=== PATIENT | female | born 1945 | race Caucasian/White ===

== ENCOUNTER 2017-04-01 20:01 | Inpatient (IN) | payer OTHER ==
[~2017-04-01] VITALS: Ht 157.5 cm; Wt 69.9 kg
[~2017-04-01 20:01] MED LIST: AMLO5TAB4 PO; ATEN-51 PO; CRES10 PO; ENAL20TA PO; HYD25 PO; MTF1000T PO
[2017-04-01] MEDS ORDERED: SOD CHLORIDE 0.9% 1,000 ML IV STA (22:04)
[2017-04-01] MEDS ORDERED: ONDANSETRON 4 MG INJ IV STA (22:04)
[2017-04-01] MEDS ORDERED: morphine 2 MG INJ IV STA (22:04)
[2017-04-01 22:21] LABS: ADD SCAN DIFF NO
[2017-04-01 22:31] LABS: BASOPHILS % 0.1 % (0.0-2.0); EOSINOPHILS # 0.1 10^3/ul (0.0-0.5); EOSINOPHILS % 0.3 % (0.0-7.0); HEMATOCRIT 35.2 % (37.0-47.0); HEMOGLOBIN 11.7 g/dl (12.0-16.0); LYMPHOCYTES # 1.2 10^3/ul (0.8-2.9); LYMPHOCYTES % 7.4 % (15.0-51.0); MEAN CORPUSCULAR HEMOGLOBIN 29.4 pg (29.0-33.0); MEAN CORPUSCULAR HGB CONC 33.2 g/dl (32.0-37.0); MEAN CORPUSCULAR VOLUME 88.4 fl (82.0-101.0); MEAN PLATELET VOLUME 10.9 fl (7.4-10.4); MONOCYTE # 0.6 10^3/ul (0.3-0.9); MONOCYTES % 3.9 % (0.0-11.0); NEUTROPHIL # 14.1 10^3/ul (1.6-7.5); NEUTROPHILS % 87.2 % (39.0-77.0); PLATELET COUNT 178 10^3/UL (140-415); RED BLOOD COUNT 3.98 10^6/ul (4.20-5.40); RED CELL DISTRIBUTION WIDTH 12.2 % (11.5-14.5); WHITE BLOOD COUNT 16.1 10^3/ul (4.8-10.8)
[2017-04-01 22:53] LABS: ALBUMIN 4.2 g/dl (3.3-4.9); ALBUMIN/GLOBULIN RATIO 1.4; BILIRUBIN,INDIRECT 0.9 mg/dl (0-1.1); BILIRUBIN,TOTAL 0.9 mg/dl (0.2-1.3); CALCIUM 8.6 mg/dl (8.4-10.2); CREATININE 0.88 mg/dl (0.44-1.00); POTASSIUM 3.7 mmol/L (3.5-5.1); TOTAL PROTEIN 7.2 g/dl (6.1-8.1)
--- NOTE | 2017-04-01 23:06 | RADRPT ---
PROCEDURE: US Abdomen. CLINICAL INDICATION: abdominal pain TECHNIQUE: Multiple real-time images were acquired of the patient's right upper quadrant abdomen a nd retroperitoneum utilizing a high resolution transducer. COMPARISON: None FINDINGS: The liver demonstrates normal echogenicity. The liver is normal in size and no focal solid lesions are seen. The liver measures 15.8 cm in length. The portal vein is patent with normal direction of f low. No intrahepatic biliary dilatation is seen. Multiple calcified gallstones are identified within the gallbladder. There is also sludge within the gallbladder. There is no pericholecystic fluid . There is borderline gallbladder wall thickening, measuring 3 mm. The common bile duct measures 8 mm in maximal dimension. The visualized portions of the pancreas are unremarkable. The tail of the pancreas is not seen. No free fluid is identified. The right kidney is normal in size, and demonstrate normal echogenicity and cortical thickness. The right kidney measures 8.4 cm in long dimension. There is no evidence of hydronephrosis. There are no kidney stones. RPTAT: AA IMPRESSION: Multiple calcified stones and sludge within the gallbladder with borderline gallbladder wall thicken ing. CBD is borderline dilated. .Shane Cagle MD, Date Time Electronically viewed and signed by .Shane Cagle MD, MD on 04/01/2017 23:05 .S/
[2017-04-01 23:08] LABS: ADD UMIC YES; UR BILIRUBIN (Dip) NEGATIVE (NEGATIVE); UR BLOOD (Dip) 2+ (NEGATIVE); UR CLARITY CLEAR (CLEAR); UR COLOR LT. YELLOW (YELLOW); UR KETONES (Dip) NEGATIVE (NEGATIVE); UR LEUKOCYTE ESTERASE (Dip) NEGATIVE (NEGATIVE); UR NITRITE (Dip) NEGATIVE (NEGATIVE); UR TOTAL PROTEIN (Dip) TRACE (NEGATIVE); UR UROBILINOGEN (Dip) 1.0 E.U./dL (0.1-1.0)
[2017-04-01 23:26] LABS: UR BACTERIA RARE; UR SQUAMOUS EPITHELIAL CELL RARE
[2017-04-01] MEDS ORDERED: morphine 4 MG/ML VIAL IV STA (23:26)
--- NOTE | 2017-04-01 23:35 | ERA ---
ER Documentation Chief Complaint Date/Time DATE: 04/01/17 TIME: 23:33 Chief Complaint Nausea and AP x3 days, Dizziness HPI 72-year-old female comes in along with her son for vomiting and upper abdominal pain for the last 3 days. Dental pain is described as both a sharpness and a pressure-like pain. She also feels lightheaded. Sometimes the pain is very severe and sometimes it goes back down. The day before yesterday she was at another emergency room where they did a CAT scan and said that she may be passing gallstones. She did not get any more information. She is having more pain now than she did then. She is having chills at home but is not sure if she has had fevers. ROS All systems reviewed and are negative except as per history of present illness. Medications Home Meds Active Scripts Amlodipine Besylate* (Norvasc*) 5 Mg Tablet, 5 MG PO DAILY, #30 TAB Prov:SAL VENTURA MD 10/29/15 Reported Medications Metformin* (Glucophage*) 1,000 Mg Tablet, 1000 MG PO BID, #60 TAB 10/29/15 Enalapril Maleate* (Enalapril Maleate*) 20 Mg Tablet, 20 MG PO BID, TAB 10/29/15 Hydrochlorothiazide* (Hydrochlorothiazide*) 25 Mg Tab, 25 MG PO DAILY, #30 TAB 10/29/15 Atenolol* (Atenolol*) 25 Mg Tablet, 25 MG PO BID, TAB 10/29/15 Rosuvastatin Calcium* (Crestor*) 10 Mg Tablet, 10 MG PO QHS, #30 TAB 10/29/15 Allergies Allergies: Coded Allergies: No Known Drug Allergies (Verified Allergy, Unknown, 10/29/15) PMhx/Soc History of Surgery: Yes (hysterectomy 1987) Anesthesia Reaction: No Hx 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 Disorder: No Hx Respiratory Disorders: No Hx Psychiatric Problems: No Hx Miscellaneous Medical Probl: Yes (DM type 2) Hx Alcohol Use: No Hx Substance Use: No Hx Tobacco Use: No Smoking Status: Never smoker Physical Exam Vitals Vital Signs Date Time Temp Pulse Resp B/P Pulse Ox O2 Delivery O2 Flow Rate FiO2 04/02/17 00:00 98.6 57 20 132/51 96 Room Air 04/01/17 22:18 98.6 60 20 130/73 94 Room Air 04/01/17 20:28 98.6 63 20 128/62 96 Physical Exam Const: [] Mild distress, appears to be in some pain Head: Atraumatic Eyes: Normal Conjunctiva ENT: Normal External Ears, Nose and Mouth. Neck: Full range of motion..~ No meningismus. Resp: Clear to auscultation bilaterally Cardio: Regular rate and rhythm, no murmurs Abd: Soft, mild to moderate upper abdominal tenderness and right upper quadrant tenderness with mild voluntary guarding, positive Benitez sign, non distended. Normal bowel sounds Skin: No petechiae or rashes Back: No midline or flank tenderness Ext: No cyanosis, or edema Neur: Awake and alert and oriented 3, no focal deficits Psych: Normal Mood and Affect Result Diagram: 04/01/17220404/01/172204 Results 24 hrs Laboratory Tests Test 04/01/17 22:05 04/01/17 22:40 White Blood Count 16.110^3/ul Red Blood Count 3.9810^6/ul Hemoglobin 11.7g/dl Hematocrit 35.2% Mean Corpuscular Volume 88.4fl Mean Corpuscular Hemoglobin 29.4pg Mean Corpuscular Hemoglobin Concent 33.2g/dl Red Cell Distribution Width 12.2% Platelet Count 44702^3/UL Mean Platelet Volume 10.9fl Neutrophils % 87.2% Lymphocytes % 7.4% Monocytes % 3.9% Eosinophils % 0.3% Basophils % 0.1% Nucleated Red Blood Cells % 0.0/100WBC Neutrophils # 14.110^3/ul Lymphocytes # 1.210^3/ul Monocytes # 0.610^3/ul Eosinophils # 0.110^3/ul Basophils # 0.010^3/ul Nucleated Red Blood Cells # 0.010^3/ul Sodium Level 131mmol/L Potassium Level 3.7mmol/L Chloride Level 91mmol/L Carbon Dioxide Level 33mmol/L Anion Gap 11 Blood Urea Nitrogen 17mg/dl Creatinine 0.88mg/dl Glucose Level 243mg/dl Calcium Level 8.6mg/dl Total Bilirubin 0.9mg/dl Direct Bilirubin 0.00mg/dl Indirect Bilirubin 0.9mg/dl Aspartate Amino Transf (AST/SGOT) 123IU/L Alanine Aminotransferase (ALT/SGPT) 190IU/L Alkaline Phosphatase 163IU/L Total Protein 7.2g/dl Albumin 4.2g/dl Globulin 3.00g/dl Albumin/Globulin Ratio 1.40 Lipase 25U/L Urine Color LT. YELLOW Urine Clarity CLEAR Urine pH 6.0 Urine Specific [place] 1.015 Urine Ketones NEGATIVE Urine Nitrite NEGATIVE Urine Bilirubin NEGATIVE Urine Urobilinogen 1.0 E.U./dL Urine Leukocyte Esterase NEGATIVE Urine Microscopic RBC 2-5/HPF Urine Microscopic WBC NONE SEEN/HPF Urine Squamous Epithelial Cells RARE Urine Bacteria RARE Urine Hemoglobin 2+ Urine Glucose 0.25%% Urine Total Protein TRACE Current Medications Medications (Trade) Dose Ordered Sig/Carrie Route PRN Reason Start Time Stop Time Status Last Admin Dose Admin Sodium Chloride (NS) 1,000 ml @ 1,000 mls/hr Q1H STAT IV 04/01/17 22:04 04/01/17 23:03 DC 04/01/17 22:49 Morphine Sulfate (morphine) 2 mg ONCE STAT IV 04/01/17 22:04 04/01/17 22:05 DC Ondansetron HCl (Zofran Inj) 4 mg ONCE STAT IV 04/01/17 22:04 04/01/17 22:05 DC 04/01/17 22:46 Morphine Sulfate 4 mg 4 mg ONCE STAT IV 04/01/17 23:26 04/01/17 23:27 DC Ceftriaxone Sodium 50 ml @ 100 mls/hr ONCE ONCE IVPB 04/02/17 02:30 04/02/17 02:59 04/02/17 02:14 Metronidazole 100 ml @ 100 mls/hr ONCE ONCE IVPB 04/02/17 02:30 04/02/17 03:29 Sodium Chloride (NS) 1,000 ml @ 1,000 mls/hr Q1H ONCE IV 04/02/17 02:30 04/02/17 03:29 04/02/17 02:14 Ondansetron HCl (Zofran Inj) 4 mg BRIDGE ORDER PRN IV NAUSEA AND/OR VOMITING 04/02/17 02:30 04/03/17 02:29 Acetaminophen (Tylenol Tab) 650 mg ER BRIDGE PRN PO MILD PAIN/FEVER 04/02/17 02:30 04/03/17 02:29 Procedures/MDM Acute cholecystitis and diabetic elderly female. Elevated white count and evidence of gallbladder inflammation with liver enzyme elevation. Patient was treated with 2 L of IV fluid. Also gave Rocephin and Flagyl. No signs of sepsis. Patient declined additional morphine, was given Zofran which helped with her nausea. Spoke with , surgeon on-call, who will manage the case surgically. Also spoke with Dr. busch who will be admitting the patient to the medical surgical floor. Right upper quadrant ultrasound interpretation: Multiple gallstones with mild wall thickening and mild common bile ductal dilation. Departure Diagnosis: Primary Impression: Acute cholecystitis Additional Impressions: Hyperglycemia due to type 2 diabetes mellitus Acute abdominal pain Vomiting Generalized weakness Condition: Serious EDGARCHELSITOMI DO Apr 01, 2017 23:35
[2017-04-02] MEDS ORDERED: CEFTRIAXONE 1 GM/50 ML (PMX) 50 ML IVPB ONE (02:30)
[2017-04-02] MEDS ORDERED: SOD CHLORIDE 0.9% 1,000 ML IV ONE (02:30)
[2017-04-02] MEDS ORDERED: metroNIDAZOLE 500 MG/NS (PMX) 100 ML IVPB ONE (02:30)
[2017-04-02] MEDS ORDERED: ONDANSETRON 4 MG INJ IV PRN (02:30)
[2017-04-02] MEDS ORDERED: ACETAMINOPHEN 325 MG TAB PO PRN ×2 (02:30→03:30)
[2017-04-02 02:58] VITALS: TEMP 98.6
[2017-04-02] MEDS ORDERED: hydrALAzine 20 MG INJ IV PRN (03:00)
[2017-04-02] MEDS: SOD CHLORIDE 0.9% 1,000 ML IV SCH ×3 (03:03→23:03)
[2017-04-02] MEDS ORDERED: NACL 0.9% 3 ML SYG IV SCH (03:30)
[2017-04-02] MEDS ORDERED: ACETAMINOPHEN 650 MG SUPP PR PRN (03:30)
[2017-04-02] MEDS ORDERED: DOCUSATE SODIUM 100 MG CAP PO PRN (03:30)
[2017-04-02] MEDS ORDERED: morphine 2 MG INJ IV PRN (03:30)
[2017-04-02] MEDS ORDERED: MAGNESIUM HYDROXIDE 30ML CUP PO PRN (03:30)
[2017-04-02] MEDS ORDERED: BISACODYL 10 MG SUPP PR PRN (03:30)
[2017-04-02 03:39] VITALS: BP 169/68; RESP 20
[2017-04-02 04:00] VITALS: Ht 157.5 cm; Wt 69.9 kg
[2017-04-02 06:24] LABS: INR 1.12; PROTIME 14.4 Sec (12.2-14.2); PT RATIO 1.1
[2017-04-02 06:25] LABS: PARTIAL THROMBOPLASTIN TIME 35.7 Sec (25.0-35.0)
[2017-04-02] MEDS: LEVOFLOXACIN 500MG/D5W (PMX) 100 ML IVPB SCH (06:45)
[2017-04-02 06:52] VITALS: BP 114/65; PULSE 84
--- NOTE | 2017-04-02 07:05 | RADRPT ---
PROCEDURE: XR Chest. CLINICAL INDICATION: Preop TECHNIQUE: Single frontal chest x-ray. COMPARISON: None. FINDINGS: The lungs are clear. No focal opacification is seen. The cardiomediastinal silhouette is unremarka ble. The osseous structures are unremarkable. IMPRESSION: 1. There is no acute cardiopulmonary process. RPTAT: PP .Crispin Tadeo MD, MD Date Time Electronically viewed and signed by .Crispin Tadeo MD, MD on 04/02/2017 07:04 .B/
[2017-04-02] MEDS ORDERED: DEXTROSE 50% 50 ML SYRINGE IV PRN ×2 (07:30)
[2017-04-02] MEDS ORDERED: GLUCOSE GEL 15 GRAM TUBE PO PRN ×2 (07:30)
[2017-04-02] MEDS ORDERED: GLUCAGON 1 MG INJ IM PRN (07:30)
[2017-04-02] MEDS ORDERED: GLUCOSE GEL 15 GRAM TUBE BUCCAL PRN (07:30)
[2017-04-02 08:31] VITALS: BP 132/60; RESP 18
[2017-04-02] MEDS: FAMOTIDINE 20 MG INJ IV SCH ×2 (08:32→20:15)
[2017-04-02] MEDS: metroNIDAZOLE 500 MG/NS (PMX) 100 ML IVPB SCH ×2 (08:32→14:27)
[2017-04-02] MEDS: ATENOLOL 25 MG TAB PO SCH ×2 (08:33→20:16)
[2017-04-02] MEDS: AMLODIPINE 5 MG TAB PO SCH (08:33)
[2017-04-02] MEDS: ENALAPRIL 20 MG TAB PO SCH ×2 (08:34→20:16)
[2017-04-02] MEDS: INSULIN ASPART [NOVOLOG] 3 ML PEN SC SCH ×4 (08:47→20:25)
--- NOTE | 2017-04-02 12:36 | CONS ---
Date/Time of Note Date/Time of Note DATE: 04/02/17 TIME: 12:31 Assessment/Plan Assessment/Plan Chief Complaint/Hosp Course 72-year-old female with clinical signs and symptoms of acute cholecystitis. This has been confirmed via an ultrasound study. * Continue n.p.o., IV fluid hydration, broad-spectrum intravenous antibiotics, pain control * Tight blood sugar control * LFTs slightly elevated. Common bile duct 8 mm on ultrasound. MRCP has been ordered to evaluate for choledocholithiasis. * Recommend laparoscopic cholecystectomy; possible open to prevent further sequelae of gallstone disease which include, but are not limited to: Gangrenous cholecystitis, ascending cholangitis, choledocholithiasis, gallstone pancreatitis, etc. * The above was discussed with the patient and her family at the bedside along with all risks and benefits of surgical procedure. They fully understand and are agreeable to the treatment plan as outlined. She will be scheduled for possible laparoscopic cholecystectomy in a.m. pending medical clearance. Problems: Consultation Date/Type/Reason Admit Date/Time Apr 02, 2017 at 02:31 Date of Consultation: Apr 02, 2017 Type of Consultation: GENERAL SURGERY Reason for Consultation Acute cholecystitis Hx of Present Illness Patient is an obese 72-year-old female with a history of diabetes and hypertension who presented to the emergency room with a 3 day history of right upper quadrant abdominal pain. This has been associated with nausea and vomiting. She also reports constipation. There has been no fever/chills. Initially, the patient was seen at the [place] [facility] where CT scan was done. She was told she had gallstones, but was discharged home. Her pain persisted and she presented to the [facility] emergency room. On arrival here she was found to have a leukocytosis of 16,000. Total bilirubin level is normal, however transaminases and alk phos are elevated. Ultrasound which was done showed findings consistent with acute cholecystitis. A 14 point review of systems was conducted and was negative except for that which is mentioned in HPI Past Medical History Medical History: diabetes, hypertension Past Surgical History Past Surgical Hx: other (Cataract surgery) Family History Significant Family History: no pertinent family hx Social History Smoking Status: Never smoker Exam/Review of Systems Vital Signs Vitals Vital Signs Date Time Temp Pulse Resp B/P Pulse Ox O2 Delivery O2 Flow Rate FiO2 04/02/17 08:31 98.1 67 18 132/60 96 04/02/17 02:58 Room Air Intake and Output 04/01/17 04/01/17 04/02/17 15:00 23:00 07:00 Intake Total 100 ml Balance 100 ml Exam GENERAL: Awake, alert, oriented x 3. No acute distress. SKIN: No jaundice. HEENT: PERRLA, EOMI, No Scleral Icterus NECK: Supple without JVD CARDIOVASCULAR: S1S2, regular rate and rhythm. No murmurs appreciated. RESPIRATORY: Clear to auscultation bilaterally. ABDOMEN: Soft, bowel sounds present, there is right upper quadrant tenderness to palpation. There is no evidence of diffuse peritonitis. EXTREMITIES: Free range of motion x 4. No cyanosis, edema, or clubbing. NEUROLOGIC: Cranial nerves II-XII are intact. Sensation is intact grossly. Results Result Diagram: 04/01/17220404/01/172204 Results 24 hrs Laboratory Tests Test 04/01/17 22:05 04/01/17 22:40 04/02/17 04:04 04/02/17 05:40 White Blood Count 16.1 #H Red Blood Count 3.98 L Hemoglobin 11.7 L Hematocrit 35.2 L Mean Corpuscular Volume 88.4 Mean Corpuscular Hemoglobin 29.4 Mean Corpuscular Hemoglobin Concent 33.2 Red Cell Distribution Width 12.2 Platelet Count 178 Mean Platelet Volume 10.9 H Neutrophils % 87.2 H Lymphocytes % 7.4 L Monocytes % 3.9 Eosinophils % 0.3 Basophils % 0.1 Nucleated Red Blood Cells % 0.0 Neutrophils # 14.1 H Lymphocytes # 1.2 Monocytes # 0.6 Eosinophils # 0.1 Basophils # 0.0 Nucleated Red Blood Cells # 0.0 Sodium Level 131 L Potassium Level 3.7 Chloride Level 91 L Carbon Dioxide Level 33 H Anion Gap 11 Blood Urea Nitrogen 17 Creatinine 0.88 Glucose Level 243 H Calcium Level 8.6 Total Bilirubin 0.9 Direct Bilirubin 0.00 Indirect Bilirubin 0.9 Aspartate Amino Transf (AST/SGOT) 123 H Alanine Aminotransferase (ALT/SGPT) 190 H Alkaline Phosphatase 163 H Total Protein 7.2 Albumin 4.2 Globulin 3.00 Albumin/Globulin Ratio 1.40 Lipase 25 Urine Color LT. YELLOW Urine Clarity CLEAR Urine pH 6.0 Urine Specific [place] 1.015 Urine Ketones NEGATIVE Urine Nitrite NEGATIVE Urine Bilirubin NEGATIVE Urine Urobilinogen 1.0 E.U./dL Urine Leukocyte Esterase NEGATIVE Urine Microscopic RBC 2-5 Urine Microscopic WBC NONE SEEN Urine Squamous Epithelial Cells RARE Urine Bacteria RARE Urine Hemoglobin 2+ H Urine Glucose 0.25% H Urine Total Protein TRACE Bedside Glucose 167 Prothrombin Time 14.4 H Prothrombin Time Ratio 1.1 INR International Normalized Ratio 1.12 Activated Partial Thromboplast Time 35.7 H Test 04/02/17 08:44 Bedside Glucose 155 Medications Medications Current Medications Amlodipine Besylate (Norvasc) 5 mg DAILY PO Last administered on 04/02/17 08: 33; Admin Dose 5 MG; Start 04/02/17 at 09:00 Atenolol (Tenormin) 25 mg BID PO Last administered on 04/02/17 08:33; Admin Dose 25 MG; Start 04/02/17 at 09:00 Enalapril Maleate (Vasotec) 20 mg BID PO Last administered on 04/02/17 08:34; Admin Dose 20 MG; Start 04/02/17 at 09:00 Hydralazine HCl 10 mg 10 mg Q8H PRN IV ELEVATED BLOOD PRESSURE; Start 04/02/17 at 03:00 Sodium Chloride (NS) 1,000 ml @ 100 mls/hr Q10H IV ; Start 04/02/17 at 03:03 Ondansetron HCl (Zofran Inj) 4 mg Q6H PRN IV NAUSEA AND/OR VOMITING; Start 09/08 at 03:30 Acetaminophen (Tylenol Tab) 650 mg Q6H PRN PO PAIN LEVEL 1-3 OR FEVER; Start at 03:30 Acetaminophen (Tylenol Supp) 650 mg Q6H PRN DC PAIN LEVEL 1-3 OR FEVER; Start 04/02/17 at 03:30 Morphine Sulfate (morphine) 2 mg Q4H PRN IV SEVERE PAIN LEVEL 7-10; Start 04/02 at 03:30 Docusate Sodium (Colace) 100 mg Q12H PRN PO CONSTIPATION; Start 04/02/17 at 03: 30 Magnesium Hydroxide (Milk Of Mag) 30 ml DAILY PRN PO CONSTIPATION; Start at 03:30 Bisacodyl (Dulcolax Supp) 10 mg DAILY PRN DC CONSTIPATION; Start 04/02/17 at 03 :30 Famotidine 20 mg 20 mg Q12 IV Last administered on 04/02/17 08:32; Admin Dose 20 MG; Start 04/02/17 at 09:00 Metronidazole 100 ml @ 100 mls/hr Q8 IVPB Last administered on 04/02/17 08:32 ; Admin Dose 100 MLS/HR; Start 04/02/17 at 08:00 Levofloxacin/ Dextrose (Levaquin 500mg/ D5W 100 ml (Pmx)) 100 ml @ 100 mls/hr Q24H IVPB Last administered on 04/02/17 06:45; Admin Dose 100 MLS/HR; Start at 03:30 Insulin Aspart (Novolog Insulin Pen) NOVOLOG *MILD* ALGORI... Q4 SC ; Start 09/08 at 09:00 Miscellaneous Information 1 ea NOTE XX ; Start 04/02/17 at 07:30 Glucose (Glutose) 15 gm Q15M PRN PO DECREASED GLUCOSE; Start 04/02/17 at 07:30 Glucose (Glutose) 22.5 gm Q15M PRN PO DECREASED GLUCOSE; Start 04/02/17 at 07: 30 Dextrose (D50w Syringe) 25 ml Q15M PRN IV DECREASED GLUCOSE; Start 04/02/17 at 07:30 Dextrose (D50w Syringe) 50 ml Q15M PRN IV DECREASED GLUCOSE; Start 04/02/17 at 07:30 Glucagon (Glucagen) 1 mg Q15M PRN IM DECREASED GLUCOSE; Start 04/02/17 at 07:30 Glucose (Glutose) 15 gm Q15M PRN BUCCAL DECREASED GLUCOSE; Start 04/02/17 at 07 :30 Procedures Procedures PROCEDURE: US Abdomen. CLINICAL INDICATION: abdominal pain TECHNIQUE: Multiple real-time images were acquired of the patient's right upper quadrant abdomen and retroperitoneum utilizing a high resolution transducer. COMPARISON: None FINDINGS: The liver demonstrates normal echogenicity. The liver is normal in size and no focal solid lesions are seen. The liver measures 15.8 cm in length. The portal vein is patent with normal direction of flow. No intrahepatic biliary dilatation is seen. Multiple calcified gallstones are identified within the gallbladder. There is also sludge within the gallbladder. There is no pericholecystic fluid . There is borderline gallbladder wall thickening, measuring 3 mm. The common bile duct measures 8 mm in maximal dimension. The visualized portions of the pancreas are unremarkable. The tail of the pancreas is not seen. No free fluid is identified. The right kidney is normal in size, and demonstrate normal echogenicity and cortical thickness. The right kidney measures 8.4 cm in long dimension. There is no evidence of hydronephrosis. There are no kidney stones. RPTAT: AA IMPRESSION: Multiple calcified stones and sludge within the gallbladder with borderline gallbladder wall thickening. CBD is borderline dilated. .Shane Cagle MD, MD Date Time Electronically viewed and signed by .Shnae Cagle MD, MD on 04/01/2017 23: 05 .S/ CC: TOMI HERNÁNDEZ MICHAEL A. MD Apr 02, 2017 12:36
--- NOTE | 2017-04-02 14:06 | HP ---
DATE OF ADMISSION: 04/02/2017 ADMITTING PHYSICIAN: Opal Quinn MD CONSULT ON ADMISSION: Luis Manuel Vasquez MD, from general surgery. HISTORY OF PRESENT ILLNESS: This is a 72-year-old female with history of hypertension, diabetes renaldo litus, hyperlipidemia who presented to the emergency department with complaint of right upper quadra nt abdominal pain. The patient reports that she has been having pain for the past 4 days. She had episodes of nausea and vomiting 4 days ago at the onset of the pain, and she also had an episode of diarrhea prior to onset of the pain. She has been having right upper quadrant pain which was worse 4 days ago, has been decreasing in intensity over the past 4 days, but persistent. She was seen at a [facility] as she reportedly had a CAT scan done at that time and was found to have cholelith iasis, likely as she was discharged on pain medication with outpatient followup. She denies any niyah st pain. She denies any genitourinary complaints. She denies any focal deficit. She denies any pr evious history of heart disease. In the emergency department, she was found to have a white blood c ell count of 16. She has abnormal LFTs, but normal bilirubin level. She has been admitted to a [facility]/surgical bed awaiting surgical evaluation and MRCP today. ALLERGIES: NO KNOWN ALLERGIES. PAST MEDICAL HISTORY: 1. Hypertension. 2. Hyperlipidemia. 3. Diabetes mellitus. 4. Gallstone disease. PAST SURGICAL HISTORY: 1. Status post hysterectomy remotely. 2. Status post left breast lumpectomy remotely. 3. Status post remotely. SOCIAL HISTORY: The patient does not drink alcohol or smoke tobacco. She lives with family. REVIEW OF SYSTEMS: As per HPI. OUTPATIENT MEDICATIONS: 1. Norvasc 5 mg p.o. daily. 2. Atenolol 25 mg p.o. b.i.d. 3. Enalapril 20 mg p.o. b.i.d. 4. Crestor 10 mg p.o. at bedtime. 5. Hydrochlorothiazide 25 mg p.o. daily. 6. Metformin 1000 mg p.o. b.i.d. PHYSICAL EXAMINATION: VITAL SIGNS: Temperature is 98.1, heart rate of 67, respiratory rate of 18, blood pressure 132/60 p atient is satting 96% on room air. GENERAL: She is alert and oriented x4. She is complaining of discomfort in her right upper quadran t area. HEENT: Pupils are equally round and reactive to light. Extraocular muscles are intact. Anicteric sclerae. NECK: No JVD, no thyromegaly noted. HEART: Regular rate and rhythm. LUNGS: Clear to auscultation bilaterally. ABDOMEN: Soft, nondistended. She does have tenderness to palpation right upper quadrant, wrapping around the right flank area. Bowel sounds are present. EXTREMITIES: No edema, clubbing or cyanosis. NEUROLOGIC: Grossly intact. LABORATORY DATA: White blood cell count is 16.1, hemoglobin 11.7, hematocrit 35.2, platelet count o f 178. Chemistry with a sodium of 131, potassium 3.7, chloride 91, bicarbonate 33, BUN 17, creatini ne 0.88, glucose of 247. LFTs with a normal bilirubin, AST of 123, ALT of 190, alkaline phosphatase of 163, total protein 7.2, albumin of 4.2. INR is 1.12, PT 14.4, PTT 35.7. Urinalysis is grossly negative. EKG shows a sinus rhythm at rate in the upper 50s. No acute ST or T-wave abnormalities. RADIOLOGICAL DATA: 1. Chest x-ray shows no acute cardiopulmonary process. 2. Gallbladder ultrasound shows multiple calcified stone and sludge within the gallbladder with bor derline gallbladder wall thickening. CBD is borderline dilated at 8 mm in maximal dimension. No pe richolecystic fluid. ASSESSMENT AND PLAN: This is a 72-year-old female with: 1. Gallstone disease, possible acute cholecystitis, currently. Rule out choledocholithiasis. Will check MRCP. After discussion with general surgery and if there are signs of choledocholithiasis, t amairani we will have GI consulted for ERCP. Otherwise, Dr. Jeong may proceed with cholecystectomy in next 24 hours. Continue current antibiotics including Levaquin and Flagyl. The patient is hemody namically stable. 2. Hyperlipidemia. We will resume her statin therapy once she is able to take p.o. 3. Hypertension. Continue current medication as tolerated with holding parameters. Patient is n.p .o. except for medications. 4. Diabetes mellitus. Will check hemoglobin A1c, sliding scale insulin in place. Will hold off of metformin for now. 5. Prophylaxis. Proton pump inhibitors for GI prophylaxis. SCDs to lower extremity for DVT prophy laxis. DISPOSITION: MRCP pending, general surgery evaluation and will also have GI evaluation as needed. Dictated By: OPAL MEADE/GUILLERMINA Conf#: [id number] DID#: [id number]
--- NOTE | 2017-04-02 14:40 | RADRPT ---
PROCEDURE: MRCP. CLINICAL INDICATION: Right upper quadrant pain. Evaluate for CBD stones. TECHNIQUE: MRCP was performed on the a high-resolution, high [place] field strength scanner. Patien t was examined without contrast. 3-D coronal rotating MIP images of the biliary tree are available for review. COMPARISON: Abdomen ultrasound 04/01/2017 FINDINGS: There is markedly distended gallbladder with abnormal wall thickening and pericholecystic inflammato ry changes in keeping with acute cholecystitis. There are multiple gallstones layering sludge in th e gallbladder. Common bile duct is mildly dilated measures up to 8 mm centrally with questionable s mall stones / sludge in the distal CBD. The pancreatic duct, as visualized, is equally unremarkable. IMPRESSION: 1. Markedly distended gallbladder containing gallstone/layering sludge with surrounding inflammator y changes most consistent with acute cholecystitis. 2. Mildly dilated central common bile duct with questionable small stones / sludge in the distal CB D. RPTAT: PP .Marcos Iverson MD, MD Date Time Electronically viewed and signed by .Marcos Iverson MD, on 04/02/2017 14:40 .O/
--- NOTE | 2017-04-02 14:43 | RADRPT ---
Vent Rate: 58 bpm RR Interval: 0 msec NV Interval: 164 msec QRS Duration: 92 msec QT Interval: 430 msec QTC Interval: 422 msec P-R-T [place]: 39 - 74 - 1 degrees Sinus bradycardia Borderline ECG Nonspecific ST-T changes No previous tracing available for comparison Electronically Signed By: Asher Castano [id number]
[2017-04-02] MEDS ORDERED: INDOMETHACIN 50 MG SUPP PR ONE (17:30)
--- NOTE | 2017-04-02 17:32 | CONS ---
Date/Time of Note Date/Time of Note DATE: 04/02/17 TIME: 17:16 Assessment/Plan Assessment/Plan Additional Assessment/Plan Assessment * Abdominal pain acute cholecystitis with choledocholithiasis vs gallstone pancreatitis MRI Markedly distended gallbladder containing gallstone/ layering sludge with surrounding inflammatory changes most consistent with acute cholecystitis Mildly dilated central common bile duct with questionable small stones / sludge in the distal CBD. * Diabetes mellitus * Hypertension Plan * ERCP risks and benefit explain to relative and patient agreed with planned procedure * NPO * PPI * Adequate pain control Consultation Date/Type/Reason Admit Date/Time Apr 02, 2017 at 02:31 Date of Consultation: Apr 02, 2017 Type of Consultation: Gastroenterology Reason for Consultation distal cbd stone Referring Provider: DEMETRIUS PONCE Hx of Present Illness 72 year old female with past medical history of diabetes ,hypertension and hyperlipidemia who presented in the emergency room complaining of right upper quadrant pain with radiation to back with associated nausea and vomiting.Patient claims condition started 4 days prior to admission ,consulted [facility] and given medications and discharged,Right upper quadrant pain recurred hence consult,She denied chest pain ,hematemesis ,shortness of breath or fever' Emergency room ultrasound revealed Multiple calcified stones and sludge within the gallbladder with borderline gallbladder wall thickening. CBD is borderline dilated.CBC showed leukocytosis 16.1,elevated AST 123,ALT 190, alkaline phosphatase 163.M Subsequent MRCP revealed 1. Markedly distended gallbladder containing gallstone /layering sludge with surrounding inflammatory changes most consistent with acute cholecystitis.. Mildly dilated central common bile duct with questionable small stones / sludge in the distal CBD. Presently ,patient complains of mild abdominal pain,afebrile. I have talked with the family and discuss the planned ERCP for tomorrow including risks and benefits and family agreed Constitutional: improved Eyes: no complaints ENT: no complaints Respiratory: no complaints Cardiovascular: no complaints Gastrointestinal: flatus, nausea, pain, vomiting Genitourinary: no complaints Musculoskeletal: no complaints Skin: no complaints Neurologic: no complaints Endocrine: no complaints Lymphatic: no complaints Psychological: nl mood/affect, no complaints Immunologic: no complaints Past Medical History Medical History: diabetes, hypertension Past Surgical History Past Surgical Hx: other (Cataract surgery) Family History Significant Family History: no pertinent family hx Social History Smoking Status: Never smoker Exam/Review of Systems Vital Signs Vitals Vital Signs Date Time Temp Pulse Resp B/P Pulse Ox O2 Delivery O2 Flow Rate FiO2 04/02/17 08:31 98.1 67 18 132/60 96 04/02/17 02:58 Room Air Intake and Output 04/01/17 04/01/17 04/02/17 15:00 23:00 07:00 Intake Total 100 ml Balance 100 ml Exam Constitutional: alert, oriented, well developed Head: atraumatic, normocephalic Eyes: PERRL, nl conjunctiva, nl sclera Neck: non-tender, supple Respiratory: clear to auscultation, normal air movement Cardiovascular: nl pulses, regular rate and rhythm Gastrointestinal: bowel sounds, nl liver, spleen, non-tender, soft, No rebound or guarding Musculoskeletal: nl extremities to inspection, nl gait and stance Extremities: normal pulses 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: TRAINING DEVELOPMENT SPECIALIST II-XII intact, nl mental status, nl speech, nl strength Skin: nl turgor, No rash or lesions Lymph: nl lymph nodes Results Result Diagram: 04/01/17220404/01/172204 Results 24 hrs Laboratory Tests Test 04/01/17 22:05 04/01/17 22:40 04/02/17 04:04 04/02/17 05:40 White Blood Count 16.1 #H Red Blood Count 3.98 L Hemoglobin 11.7 L Hematocrit 35.2 L Mean Corpuscular Volume 88.4 Mean Corpuscular Hemoglobin 29.4 Mean Corpuscular Hemoglobin Concent 33.2 Red Cell Distribution Width 12.2 Platelet Count 178 Mean Platelet Volume 10.9 H Neutrophils % 87.2 H Lymphocytes % 7.4 L Monocytes % 3.9 Eosinophils % 0.3 Basophils % 0.1 Nucleated Red Blood Cells % 0.0 Neutrophils # 14.1 H Lymphocytes # 1.2 Monocytes # 0.6 Eosinophils # 0.1 Basophils # 0.0 Nucleated Red Blood Cells # 0.0 Sodium Level 131 L Potassium Level 3.7 Chloride Level 91 L Carbon Dioxide Level 33 H Anion Gap 11 Blood Urea Nitrogen 17 Creatinine 0.88 Glucose Level 243 H Calcium Level 8.6 Total Bilirubin 0.9 Direct Bilirubin 0.00 Indirect Bilirubin 0.9 Aspartate Amino Transf (AST/SGOT) 123 H Alanine Aminotransferase (ALT/SGPT) 190 H Alkaline Phosphatase 163 H Total Protein 7.2 Albumin 4.2 Globulin 3.00 Albumin/Globulin Ratio 1.40 Lipase 25 Urine Color LT. YELLOW Urine Clarity CLEAR Urine pH 6.0 Urine Specific [place] 1.015 Urine Ketones NEGATIVE Urine Nitrite NEGATIVE Urine Bilirubin NEGATIVE Urine Urobilinogen 1.0 E.U./dL Urine Leukocyte Esterase NEGATIVE Urine Microscopic RBC 2-5 Urine Microscopic WBC NONE SEEN Urine Squamous Epithelial Cells RARE Urine Bacteria RARE Urine Hemoglobin 2+ H Urine Glucose 0.25% H Urine Total Protein TRACE Bedside Glucose 167 Prothrombin Time 14.4 H Prothrombin Time Ratio 1.1 INR International Normalized Ratio 1.12 Activated Partial Thromboplast Time 35.7 H Test 04/02/17 08:44 04/02/17 12:37 Bedside Glucose 155 139 Medications Medications Current Medications Amlodipine Besylate (Norvasc) 5 mg DAILY PO Last administered on 04/02/17 08: 33; Admin Dose 5 MG; Start 04/02/17 at 09:00 Atenolol (Tenormin) 25 mg BID PO Last administered on 04/02/17 08:33; Admin Dose 25 MG; Start 04/02/17 at 09:00 Enalapril Maleate (Vasotec) 20 mg BID PO Last administered on 04/02/17 08:34; Admin Dose 20 MG; Start 04/02/17 at 09:00 Hydralazine HCl 10 mg 10 mg Q8H PRN IV ELEVATED BLOOD PRESSURE; Start 04/02/17 at 03:00 Sodium Chloride (NS) 1,000 ml @ 100 mls/hr Q10H IV ; Start 04/02/17 at 03:03 Ondansetron HCl (Zofran Inj) 4 mg Q6H PRN IV NAUSEA AND/OR VOMITING; Start 09/08 at 03:30 Acetaminophen (Tylenol Tab) 650 mg Q6H PRN PO PAIN LEVEL 1-3 OR FEVER; Start at 03:30 Acetaminophen (Tylenol Supp) 650 mg Q6H PRN MD PAIN LEVEL 1-3 OR FEVER; Start 04/02/17 at 03:30 Docusate Sodium (Colace) 100 mg Q12H PRN PO CONSTIPATION; Start 04/02/17 at 03: 30 Magnesium Hydroxide (Milk Of Mag) 30 ml DAILY PRN PO CONSTIPATION; Start at 03:30 Bisacodyl (Dulcolax Supp) 10 mg DAILY PRN MD CONSTIPATION; Start 04/02/17 at 03 :30 Famotidine 20 mg 20 mg Q12 IV Last administered on 04/02/17 08:32; Admin Dose 20 MG; Start 04/02/17 at 09:00 Metronidazole 100 ml @ 100 mls/hr Q8 IVPB Last administered on 04/02/17 14:27 ; Admin Dose 100 MLS/HR; Start 04/02/17 at 08:00 Levofloxacin/ Dextrose (Levaquin 500mg/ D5W 100 ml (Pmx)) 100 ml @ 100 mls/hr Q24H IVPB Last administered on 04/02/17 06:45; Admin Dose 100 MLS/HR; Start at 03:30 Insulin Aspart (Novolog Insulin Pen) NOVOLOG *MILD* ALGORI... Q4 SC ; Start 09/08 at 09:00 Miscellaneous Information 1 ea NOTE XX ; Start 04/02/17 at 07:30 Glucose (Glutose) 15 gm Q15M PRN PO DECREASED GLUCOSE; Start 04/02/17 at 07:30 Glucose (Glutose) 22.5 gm Q15M PRN PO DECREASED GLUCOSE; Start 04/02/17 at 07: 30 Dextrose (D50w Syringe) 25 ml Q15M PRN IV DECREASED GLUCOSE; Start 04/02/17 at 07:30 Dextrose (D50w Syringe) 50 ml Q15M PRN IV DECREASED GLUCOSE; Start 04/02/17 at 07:30 Glucagon (Glucagen) 1 mg Q15M PRN IM DECREASED GLUCOSE; Start 04/02/17 at 07:30 Glucose (Glutose) 15 gm Q15M PRN BUCCAL DECREASED GLUCOSE; Start 04/02/17 at 07 :30 Morphine Sulfate (morphine) 4 mg Q4H PRN IV SEVERE PAIN LEVEL 7-10; Start 04/02 at 15:30 IVY JEAN MD Apr 02, 2017 17:28
[2017-04-02 19:42] VITALS: BP 145/67; RESP 20
[2017-04-02] MEDS: morphine 4 MG/ML VIAL IV PRN (20:15)
[2017-04-02 20:26] VITALS: BP 142/63; PULSE 66
[2017-04-03] VITALS (15 sets, daily range): BP systolic 123–151; BP diastolic 46–71; PULSE 52–79; RESP 16–28
[2017-04-03] MEDS: INSULIN ASPART [NOVOLOG] 3 ML PEN SC SCH ×5 (01:00→17:00)
[2017-04-03] MEDS: metroNIDAZOLE 500 MG/NS (PMX) 100 ML IVPB SCH ×3 (01:06→14:31)
[2017-04-03] MEDS: LEVOFLOXACIN 500MG/D5W (PMX) 100 ML IVPB SCH (04:33)
[2017-04-03 06:10] LABS: ADD SCAN DIFF NO
[2017-04-03 06:15] LABS: BASOPHILS % 0.3 % (0.0-2.0); EOSINOPHILS # 0.1 10^3/ul (0.0-0.5); EOSINOPHILS % 0.9 % (0.0-7.0); HEMATOCRIT 31.2 % (37.0-47.0); HEMOGLOBIN 10.4 g/dl (12.0-16.0); LYMPHOCYTES # 1.4 10^3/ul (0.8-2.9); LYMPHOCYTES % 15.4 % (15.0-51.0); MEAN CORPUSCULAR HEMOGLOBIN 29.9 pg (29.0-33.0); MEAN CORPUSCULAR HGB CONC 33.3 g/dl (32.0-37.0); MEAN CORPUSCULAR VOLUME 89.7 fl (82.0-101.0); MEAN PLATELET VOLUME 11.2 fl (7.4-10.4); MONOCYTE # 0.9 10^3/ul (0.3-0.9); MONOCYTES % 9.2 % (0.0-11.0); NEUTROPHIL # 6.9 10^3/ul (1.6-7.5); NEUTROPHILS % 73.6 % (39.0-77.0); PLATELET COUNT 191 10^3/UL (140-415); RED BLOOD COUNT 3.48 10^6/ul (4.20-5.40); RED CELL DISTRIBUTION WIDTH 12.5 % (11.5-14.5); WHITE BLOOD COUNT 9.3 10^3/ul (4.8-10.8)
[2017-04-03 06:50] LABS: ALBUMIN 3.4 g/dl (3.3-4.9); ALBUMIN/GLOBULIN RATIO 1.13; BILIRUBIN,INDIRECT 0.5 mg/dl (0-1.1); BILIRUBIN,TOTAL 0.5 mg/dl (0.2-1.3); CALCIUM 8.7 mg/dl (8.4-10.2); CHOL/HDL RATIO 5.8 RATIO; CREATININE 0.7 mg/dl (0.44-1.00); MAGNESIUM 2.1 mg/dl (1.7-2.5); PHOSPHORUS 2.9 mg/dl (2.5-4.9); POTASSIUM 3.4 mmol/L (3.5-5.1); TOTAL PROTEIN 6.4 g/dl (6.1-8.1)
[2017-04-03] MEDS: SOD CHLORIDE 0.9% 1,000 ML IV SCH ×2 (07:30→09:04)
[2017-04-03] MEDS: FAMOTIDINE 20 MG INJ IV SCH (09:01)
[2017-04-03] MEDS: ATENOLOL 25 MG TAB PO SCH (09:02)
[2017-04-03] MEDS: AMLODIPINE 5 MG TAB PO SCH (09:02)
[2017-04-03] MEDS: ENALAPRIL 20 MG TAB PO SCH (09:03)
--- NOTE | 2017-04-03 10:40 | PN ---
Date/Time of Note Date/Time of Note DATE: 04/03/17 TIME: 10:39 Assessment/Plan Lines/Catheters IV Catheter Type (from Nrs): Peripheral IV Carballo in Place (from Nrs): No Assessment/Plan Assessment/Plan 72-year-old female with clinical signs and symptoms of acute cholecystitis. This has been confirmed via an ultrasound study. * Continue n.p.o., IV fluid hydration, broad-spectrum intravenous antibiotics, pain control * Tight blood sugar control * MRCP shows likely choledocholithiasis. * ERCP planned by GI for today * Hopefully lap [place] after ERCP Subjective 24 Hr Interval Summary Feels better. Denies abdominal pain. Afebrile. Exam/Review of Systems Vital Signs Vitals Vital Signs Date Time Temp Pulse Resp B/P Pulse Ox O2 Delivery O2 Flow Rate FiO2 04/03/17 07:15 98.5 64 16 133/60 97 04/02/17 02:58 Room Air Intake and Output 04/02/17 04/02/17 04/03/17 15:00 23:00 07:00 Intake Total 1450 ml 1100 ml Balance 1450 ml 1100 ml Exam Free Text/Dictation GENERAL: Awake, alert, oriented x 3. No acute distress. SKIN: No jaundice. HEENT: PERRLA, EOMI, No Scleral Icterus CARDIOVASCULAR: S1S2, regular rate and rhythm. No murmurs appreciated. RESPIRATORY: Clear to auscultation bilaterally. ABDOMEN: Soft, bowel sounds present, there is right upper quadrant tenderness to palpation. There is no evidence of diffuse peritonitis. EXTREMITIES: Free range of motion x 4. No cyanosis, edema, or clubbing. Results Result Diagram: 04/03/17 0442 04/03/17 0442 ROBBY ENCINAS MD Apr 03, 2017 10:40
[2017-04-03] MEDS ORDERED: POTASSIUM CHLORIDE (SR) 20 MEQ TAB PO STA (11:04)
--- NOTE | 2017-04-03 11:08 | PN ---
Date/Time of Note Date/Time of Note DATE: 04/03/17 TIME: 11:00 Assessment/Plan VTE Prophylaxis VTE Prophylaxis Intervention: SCD's Lines/Catheters IV Catheter Type (from Nrs): Peripheral IV Urinary Cath still in place: No Assessment/Plan Assessment/Plan 72-year-old female with: 1. Acute cholecystitis, and CBD dlatation on MRCP with sludge and possible small stones. Labs better GI consult with Dr Mobley and plan for ERCP today Cholecystectomy with Dr Vasquez tomorrow Continue Levaquin and Flagyl. From medical standpoint patient is a low risk for CV complications, she may proceed with procedures as they get scheduled 2. Hyperlipidemia. We will resume her statin therapy post op. 3. Hypertension. Continue current medications as tolerated with holding parameters. Patient is n.p.o. except for medications. 4. Diabetes mellitus. A1c 7.1 Continue sliding scale insulin while NPO. 5. Hypokalemia: replete and change IVF Prophylaxis. Proton pump inhibitors for GI prophylaxis. SCDs to lower extremity for DVT prophylaxis. DISPOSITION: ERCP today and cholecystectomy tomorrow. Subjective 24 Hr Interval Summary Free Text/Dictation Patient remains stable, NPO and on IVF/IV abx ERCP today and cholecystectomy tomorrow Exam/Review of Systems Vital Signs Vitals Vital Signs Date Time Temp Pulse Resp B/P Pulse Ox O2 Delivery O2 Flow Rate FiO2 04/03/17 07:15 98.5 64 16 133/60 97 04/02/17 02:58 Room Air Intake and Output 04/02/17 04/02/17 04/03/17 15:00 23:00 07:00 Intake Total 1450 ml 1100 ml Balance 1450 ml 1100 ml Exam Constitutional: alert, oriented, well developed Respiratory: clear to auscultation, normal air movement Cardiovascular: nl pulses, regular rate and rhythm Gastrointestinal: soft, tender (RUQ to right flank with palpation ) Musculoskeletal: nl extremities to inspection, nl gait and stance Extremities: normal pulses, other (no edema, clubbing or cyanosis ) 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: HOSPICE CLINICAL MARKETER II-XII intact, nl mental status, nl speech, nl strength Results Result Diagram: 04/03/17 0442 04/03/17 0442 Results 24 hrs Laboratory Tests Test 04/02/17 12:37 04/02/17 17:41 04/02/17 20:24 04/03/17 01:04 Bedside Glucose 139 135 143 126 Test 04/03/17 04:36 04/03/17 04:42 04/03/17 08:51 Bedside Glucose 120 148 White Blood Count 9.3 # Red Blood Count 3.48 L Hemoglobin 10.4 L Hematocrit 31.2 L Mean Corpuscular Volume 89.7 Mean Corpuscular Hemoglobin 29.9 Mean Corpuscular Hemoglobin Concent 33.3 Red Cell Distribution Width 12.5 Platelet Count 191 Mean Platelet Volume 11.2 H Neutrophils % 73.6 Lymphocytes % 15.4 Monocytes % 9.2 Eosinophils % 0.9 Basophils % 0.3 Nucleated Red Blood Cells % 0.0 Neutrophils # 6.9 Lymphocytes # 1.4 Monocytes # 0.9 Eosinophils # 0.1 Basophils # 0.0 Nucleated Red Blood Cells # 0.0 Sodium Level 140 Potassium Level 3.4 L Chloride Level 107 # Carbon Dioxide Level 25 Anion Gap 11 Blood Urea Nitrogen 9 Creatinine 0.70 Glucose Level 117 # Hemoglobin A1c 7.2 H Calcium Level 8.7 Phosphorus Level 2.9 Magnesium Level 2.1 Total Bilirubin 0.5 Direct Bilirubin 0.00 Indirect Bilirubin 0.5 Aspartate Amino Transf (AST/SGOT) 25 Alanine Aminotransferase (ALT/SGPT) 95 H Alkaline Phosphatase 127 H Total Protein 6.4 Albumin 3.4 Globulin 3.00 Albumin/Globulin Ratio 1.13 Triglycerides Level 143 Cholesterol Level 140 LDL Cholesterol, Calculated 87 HDL Cholesterol 24 L Cholesterol/HDL Ratio 5.8 Medications Medications Current Medications Amlodipine Besylate (Norvasc) 5 mg DAILY PO Last administered on 04/03/17 09: 02; Admin Dose 5 MG; Start 04/02/17 at 09:00 Atenolol (Tenormin) 25 mg BID PO Last administered on 04/03/17 09:02; Admin Dose 25 MG; Start 04/02/17 at 09:00 Enalapril Maleate (Vasotec) 20 mg BID PO Last administered on 04/03/17 09:03; Admin Dose 20 MG; Start 04/02/17 at 09:00 Hydralazine HCl 10 mg 10 mg Q8H PRN IV ELEVATED BLOOD PRESSURE; Start 04/02/17 at 03:00 Sodium Chloride (NS) 1,000 ml @ 100 mls/hr Q10H IV Last administered on 09:04; Admin Dose 100 MLS/HR; Start 04/02/17 at 03:03 Ondansetron HCl (Zofran Inj) 4 mg Q6H PRN IV NAUSEA AND/OR VOMITING; Start 09/08 at 03:30 Acetaminophen (Tylenol Tab) 650 mg Q6H PRN PO PAIN LEVEL 1-3 OR FEVER; Start at 03:30 Acetaminophen (Tylenol Supp) 650 mg Q6H PRN CA PAIN LEVEL 1-3 OR FEVER; Start 04/02/17 at 03:30 Docusate Sodium (Colace) 100 mg Q12H PRN PO CONSTIPATION; Start 04/02/17 at 03: 30 Magnesium Hydroxide (Milk Of Mag) 30 ml DAILY PRN PO CONSTIPATION; Start at 03:30 Bisacodyl (Dulcolax Supp) 10 mg DAILY PRN CA CONSTIPATION; Start 04/02/17 at 03 :30 Famotidine 20 mg 20 mg Q12 IV Last administered on 04/03/17 09:01; Admin Dose 20 MG; Start 04/02/17 at 09:00 Metronidazole 100 ml @ 100 mls/hr Q8 IVPB Last administered on 04/03/17 06:46 ; Admin Dose 100 MLS/HR; Start 04/02/17 at 08:00 Levofloxacin/ Dextrose (Levaquin 500mg/ D5W 100 ml (Pmx)) 100 ml @ 100 mls/hr Q24H IVPB Last administered on 04/03/17 04:33; Admin Dose 100 MLS/HR; Start at 03:30 Insulin Aspart (Novolog Insulin Pen) NOVOLOG *MILD* ALGORI... Q4 SC Last administered on 04/03/17 09:12; Admin Dose 1 UNIT; Start 04/02/17 at 09:00 Miscellaneous Information 1 ea NOTE XX ; Start 04/02/17 at 07:30 Glucose (Glutose) 15 gm Q15M PRN PO DECREASED GLUCOSE; Start 04/02/17 at 07:30 Glucose (Glutose) 22.5 gm Q15M PRN PO DECREASED GLUCOSE; Start 04/02/17 at 07: 30 Dextrose (D50w Syringe) 25 ml Q15M PRN IV DECREASED GLUCOSE; Start 04/02/17 at 07:30 Dextrose (D50w Syringe) 50 ml Q15M PRN IV DECREASED GLUCOSE; Start 04/02/17 at 07:30 Glucagon (Glucagen) 1 mg Q15M PRN IM DECREASED GLUCOSE; Start 04/02/17 at 07:30 Glucose (Glutose) 15 gm Q15M PRN BUCCAL DECREASED GLUCOSE; Start 04/02/17 at 07 :30 Morphine Sulfate (morphine) 4 mg Q4H PRN IV SEVERE PAIN LEVEL 7-10 Last administered on 04/02/17t 20:15; Admin Dose 4 MG; Start 04/02/17 at 15:30 DEMETRIUS PONCE Apr 03, 2017 11:08
[2017-04-03] MEDS: ONDANSETRON 4 MG INJ IV PRN ×2 (13:23→20:51)
[2017-04-03] MEDS: POTASSIUM CHLORIDE 40 MEQ in SOD CHLORIDE 0.9% 1,000 ML IV SCH ×2 (13:24→23:12)
[2017-04-03] MEDS ORDERED: ALPRAZOLAM 0.25 MG TAB PO PRN (15:30)
[2017-04-03] MEDS ORDERED: INDOMETHACIN 50 MG SUPP PR ONE (18:02)
[2017-04-03] MEDS ORDERED: DIPHENHYDRAMINE 50 MG INJ IV PRN (20:30)
[2017-04-03] MEDS ORDERED: HYDROmorphONE (0.2 MG/ML) 10ML SYG IV PRN ×2 (20:30)
[2017-04-03] MEDS ORDERED: FENTAnyl 50 MCG/ML VIAL IV PRN (20:30)
[2017-04-03] MEDS ORDERED: ONDANSETRON 4 MG INJ IV PRN (20:30)
[2017-04-03] MEDS ORDERED: MEPERIDINE 25 MG INJ IV PRN (20:30)
[2017-04-03] MEDS ORDERED: METOCLOPRAMIDE 10 MG INJ IV PRN (20:30)
--- NOTE | 2017-04-03 21:30 | RADRPT ---
PROCEDURE: ERCP CLINICAL INDICATION: Acute cholecystitis, dilated common bile duct with questionable small stones / sludge in the distal common bile duct on MRCP TECHNIQUE: 24 intraoperative images for MRCP are provided. 3 minutes 37 seconds of fluoroscopy ti me utilized. COMPARISON: MRCP of 04/02/2017 FINDINGS: Mild dilatation of the extrahepatic bile duct is seen. No definite filling defects seen in the extr ahepatic bile duct or opacified central intrahepatic bile ducts or pancreatic duct. Sphincterotomy was performed. A balloon was inflated in the extrahepatic bile duct and the duct was swept. There i s opacification of the cystic duct and some contrast is apparent in the gallbladder. IMPRESSION: Mild dilatation of extrahepatic bile duct. Sphincterotomy performed. Balloon inflated and extrahepa tic bile duct swept. Please refer to procedure report. RPTAT: HJES .Asher Nicole MD, Date Time Electronically viewed and signed by .Asher Nicole MD, on 04/03/2017 21:30 .S/
--- NOTE | 2017-04-03 22:12 | GILP ---
DATE OF PROCEDURE: 04/03/2017 DATE: 04/03/2017 NAME OF PROCEDURE: Endoscopic retrograde cholangiopancreatography with sphincterotomy. SURGEON: Ivy Mobley MD. PREMEDICATION: General anesthesia by anesthesiologist. INSTRUMENT USED: Olympus side-viewing panendoscope. TECHNIQUE: After informed consent, with the patient/relatives understanding the procedure, its indic ations, potential risks, and complications, including but not limited to: allergic reaction, bleedin g, perforation or infection, and after all pertinent questions were answered to the patient's satisf action, the patient/relatives signed witnessed informed consent. Following this, premedication was administered slowly IV push under careful cardiovascular and respi ratory monitoring with pulse oximetry, automatic blood pressure and manager monitoring. Once the sedative effect was achieved the patient was place in the prone position in the radiology s pecial procedures suite; the side viewing panendoscope was introduced and advanced under visual cont rol. Careful examination of the upper gastrointestinal tract, both on insertion as well as withdrawal of the instrument disclosed the following findings: ESOPHAGUS: The mucosa of the entire esophagus appears within normal limits. There is no evidence o f esophagitis, varices, neoplasm, or stricture. No hiatal hernia identified. STOMACH: Upon entrance to the stomach air was insufflated, the gastric chino distended normally. T he mucosa of the fundus, body, and antrum of the stomach was carefully examined both head-on and on retroflexion, and shows no abnormalities. There is no evidence of gastritis, ulcers, or neoplasm. PYLORUS: The pylorus appears patent and within normal limits, with no evidence of gastric outlet ob struction. DUODENUM: The duodenal mucosa was carefully examined in the duodenal bulb as well as the second por tion of the duodenum and appears unremarkable with no evidence of duodenitis, ulcer, or neoplasm. AMPULLA OF VATER: The ampulla was identified, was cannulated without difficulty. Eventually, we wer e able to place a wire in the pancreatic duct and subsequent to this, we obtained selective cannulat ion of the biliary tree. The biliary tree significantly dilated with a maximum diameter of 15 mm. No stones are present, but emptying is severely compromised. A sphincterotomy was performed. This improved emptying. Following this, balloon catheter measuring 12 to 15 mm was utilized to sweep the biliary tree, obtaining no stones, but ____ adequate drainage. IMPRESSION: Probable papillary stricture post-sphincterotomy with improved drainage. PLAN: Laparoscopic cholecystectomy as scheduled tomorrow. Dictated By: IVY MOBLEY MS/GUILLERMINA Conf#: [id number] DID#: [id number] CC: IVY MOBLEY; DEMETRIUS PONCE MD;*EndCC*
[2017-04-04] VITALS (21 sets, daily range): BP systolic 105–139; BP diastolic 39–70; PULSE 60–70; RESP 10–18
[2017-04-04] MEDS: ATENOLOL 25 MG TAB PO SCH ×3 (00:11→21:00)
[2017-04-04] MEDS: metroNIDAZOLE 500 MG/NS (PMX) 100 ML IVPB SCH ×3 (00:11→13:22)
[2017-04-04] MEDS: FAMOTIDINE 20 MG INJ IV SCH ×2 (00:12→08:45)
[2017-04-04] MEDS: ENALAPRIL 20 MG TAB PO SCH ×3 (00:12→21:00)
[2017-04-04] MEDS: morphine 4 MG/ML VIAL IV PRN (00:18)
[2017-04-04] MEDS: INSULIN ASPART [NOVOLOG] 3 ML PEN SC SCH ×6 (00:29→17:00)
[2017-04-04] MEDS: LEVOFLOXACIN 500MG/D5W (PMX) 100 ML IVPB SCH (04:59)
[2017-04-04 05:44] LABS: ADD SCAN DIFF NO
[2017-04-04 05:55] LABS: BASOPHILS % 0.3 % (0.0-2.0); EOSINOPHILS % 0.4 % (0.0-7.0); HEMATOCRIT 32.9 % (37.0-47.0); HEMOGLOBIN 10.6 g/dl (12.0-16.0); LYMPHOCYTES # 1.3 10^3/ul (0.8-2.9); LYMPHOCYTES % 17.5 % (15.0-51.0); MEAN CORPUSCULAR HEMOGLOBIN 29.2 pg (29.0-33.0); MEAN CORPUSCULAR HGB CONC 32.2 g/dl (32.0-37.0); MEAN CORPUSCULAR VOLUME 90.6 fl (82.0-101.0); MONOCYTE # 0.8 10^3/ul (0.3-0.9); MONOCYTES % 10.8 % (0.0-11.0); NEUTROPHIL # 5.4 10^3/ul (1.6-7.5); NEUTROPHILS % 70.1 % (39.0-77.0); PLATELET COUNT 207 10^3/UL (140-415); RED BLOOD COUNT 3.63 10^6/ul (4.20-5.40); RED CELL DISTRIBUTION WIDTH 12.8 % (11.5-14.5); WHITE BLOOD COUNT 7.7 10^3/ul (4.8-10.8)
[2017-04-04 06:14] LABS: INR 1.19; PROTIME 15.2 Sec (12.2-14.2); PT RATIO 1.2
[2017-04-04 06:15] LABS: PARTIAL THROMBOPLASTIN TIME 28.9 Sec (25.0-35.0)
[2017-04-04 06:54] LABS: ALBUMIN 3.2 g/dl (3.3-4.9); ALBUMIN/GLOBULIN RATIO 1.06; BILIRUBIN,DIRECT 0.5 mg/dl (0.00-0.20); BILIRUBIN,INDIRECT 0.4 mg/dl (0-1.1); BILIRUBIN,TOTAL 0.9 mg/dl (0.2-1.3); CREATININE 0.74 mg/dl (0.44-1.00); POTASSIUM 4.5 mmol/L (3.5-5.1); TOTAL PROTEIN 6.2 g/dl (6.1-8.1)
[2017-04-04] MEDS: AMLODIPINE 5 MG TAB PO SCH (08:45)
[2017-04-04] MEDS: POTASSIUM CHLORIDE 40 MEQ in SOD CHLORIDE 0.9% 1,000 ML IV SCH (10:34)
--- NOTE | 2017-04-04 11:24 | PN ---
Date/Time of Note Date/Time of Note DATE: 04/04/17 TIME: 11:11 Assessment/Plan VTE Prophylaxis VTE Prophylaxis Intervention: SCD's Lines/Catheters IV Catheter Type (from Nrs): Peripheral IV Urinary Cath still in place: No Assessment/Plan Assessment/Plan 72-year-old female with: 1. Acute cholecystitis, and CBD dilatation on MRCP with sludge and possible small stones, S/p ERCP yesterday with Dr Mobley Planning for cholecystectomy tonight. Labs stable Continue Levaquin and Flagyl. From medical standpoint patient is a low risk for CV complications, she may proceed with procedures as they get scheduled 2. Hyperlipidemia. We will resume her statin therapy post op. 3. Hypertension. Continue current medications as tolerated with holding parameters. Patient is n.p.o. except for medications. 4. Diabetes mellitus. A1c 7.1 Continue sliding scale insulin while NPO. 5. Chronic Vertigo, with recurrence. Resume Meclizine. Prophylaxis. Proton pump inhibitors for GI prophylaxis. SCDs to lower extremity for DVT prophylaxis. DISPOSITION: Cholecystectomy today. Subjective 24 Hr Interval Summary Free Text/Dictation Patient complaining of chronic Vertigo, meclizine will be resumed Awaiting Cholecystectomy tonight at [address] perez Exam/Review of Systems Vital Signs Vitals Vital Signs Date Time Temp Pulse Resp B/P Pulse Ox O2 Delivery O2 Flow Rate FiO2 04/04/17 07:10 98.3 56 18 132/63 95 04/03/17 21:29 Room Air Intake and Output 04/03/17 04/03/17 04/04/17 15:00 23:00 07:00 Intake Total 800 ml 500 ml 650 ml Balance 800 ml 500 ml 650 ml Exam Constitutional: alert, oriented, well developed Respiratory: clear to auscultation, normal air movement Cardiovascular: nl pulses, regular rate and rhythm Gastrointestinal: non-tender, soft Musculoskeletal: nl extremities to inspection, other (no edema, clubbing or cyanosis ) Extremities: normal pulses 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: 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 HELPER II-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, nl mental status, nl speech, other (chronic vertigo ) Results Result Diagram: 04/04/17 0515 04/04/17 0515 Results 24 hrs Laboratory Tests Test 04/03/17 13:28 04/03/17 17:28 04/03/17 23:47 04/04/17 01:12 Bedside Glucose 126 126 177 188 Test 04/04/17 04:59 04/04/17 05:15 04/04/17 08:44 Bedside Glucose 140 132 White Blood Count 7.7 Red Blood Count 3.63 L Hemoglobin 10.6 L Hematocrit 32.9 L Mean Corpuscular Volume 90.6 Mean Corpuscular Hemoglobin 29.2 Mean Corpuscular Hemoglobin Concent 32.2 Red Cell Distribution Width 12.8 Platelet Count 207 Mean Platelet Volume 11.0 H Neutrophils % 70.1 Lymphocytes % 17.5 Monocytes % 10.8 Eosinophils % 0.4 Basophils % 0.3 Nucleated Red Blood Cells % 0.0 Neutrophils # 5.4 Lymphocytes # 1.3 Monocytes # 0.8 Eosinophils # 0.0 Basophils # 0.0 Nucleated Red Blood Cells # 0.0 Prothrombin Time 15.2 H Prothrombin Time Ratio 1.2 INR International Normalized Ratio 1.19 Activated Partial Thromboplast Time 28.9 Sodium Level 146 H Potassium Level 4.5 Chloride Level 113 H Carbon Dioxide Level 23 Anion Gap 15 Blood Urea Nitrogen 15 Creatinine 0.74 Glucose Level 163 Calcium Level 9.0 Phosphorus Level 4.0 Magnesium Level 2.0 Total Bilirubin 0.9 Direct Bilirubin 0.50 #H Indirect Bilirubin 0.4 Aspartate Amino Transf (AST/SGOT) 298 H Alanine Aminotransferase (ALT/SGPT) 210 H Alkaline Phosphatase 423 #H Total Protein 6.2 Albumin 3.2 L Globulin 3.00 Albumin/Globulin Ratio 1.06 Medications Medications Current Medications Amlodipine Besylate (Norvasc) 5 mg DAILY PO Last administered on 04/04/17 08: 45; Admin Dose 5 MG; Start 04/02/17 at 09:00 Atenolol (Tenormin) 25 mg BID PO Last administered on 04/04/17 00:11; Admin Dose 25 MG; Start 04/02/17 at 09:00 Enalapril Maleate (Vasotec) 20 mg BID PO Last administered on 04/04/17 08:46; Admin Dose 20 MG; Start 04/02/17 at 09:00 Hydralazine HCl (Apresoline) 10 mg Q8H PRN IV ELEVATED BLOOD PRESSURE; Start at 03:00 Ondansetron HCl (Zofran Inj) 4 mg Q6H PRN IV NAUSEA AND/OR VOMITING Last administered on 04/03/17 20:51; Admin Dose 4 MG; Start 04/02/17 at 03:30 Acetaminophen (Tylenol Tab) 650 mg Q6H PRN PO PAIN LEVEL 1-3 OR FEVER; Start at 03:30 Acetaminophen (Tylenol Supp) 650 mg Q6H PRN [place] PAIN LEVEL 1-3 OR FEVER; Start 04/02/17 at 03:30 Docusate Sodium (Colace) 100 mg Q12H PRN PO CONSTIPATION; Start 04/02/17 at 03: 30 Magnesium Hydroxide (Milk Of Mag) 30 ml DAILY PRN PO CONSTIPATION; Start at 03:30 Bisacodyl (Dulcolax Supp) 10 mg DAILY PRN [place] CONSTIPATION; Start 04/02/17 at 03 :30 Famotidine 20 mg 20 mg Q12 IV Last administered on 04/04/17 08:45; Admin Dose 20 MG; Start 04/02/17 at 09:00 Metronidazole 100 ml @ 100 mls/hr Q8 IVPB Last administered on 04/04/17 06:04 ; Admin Dose 100 MLS/HR; Start 04/02/17 at 08:00 Levofloxacin/ Dextrose (Levaquin 500mg/ D5W 100 ml (Pmx)) 100 ml @ 100 mls/hr Q24H IVPB Last administered on 04/04/17 04:59; Admin Dose 100 MLS/HR; Start at 03:30 Insulin Aspart (Novolog Insulin Pen) NOVOLOG *MILD* ALGORI... Q4 SC Last administered on 04/04/17 00:29; Admin Dose 1 UNIT; Start 04/02/17 at 09:00 Miscellaneous Information 1 ea NOTE XX ; Start 04/02/17 at 07:30 Glucose (Glutose) 15 gm Q15M PRN PO DECREASED GLUCOSE; Start 04/02/17 at 07:30 Glucose (Glutose) 22.5 gm Q15M PRN PO DECREASED GLUCOSE; Start 04/02/17 at 07: 30 Dextrose (D50w Syringe) 25 ml Q15M PRN IV DECREASED GLUCOSE; Start 04/02/17 at 07:30 Dextrose (D50w Syringe) 50 ml Q15M PRN IV DECREASED GLUCOSE; Start 04/02/17 at 07:30 Glucagon (Glucagen) 1 mg Q15M PRN IM DECREASED GLUCOSE; Start 04/02/17 at 07:30 Glucose (Glutose) 15 gm Q15M PRN BUCCAL DECREASED GLUCOSE; Start 04/02/17 at 07 :30 Morphine Sulfate (morphine) 4 mg Q4H PRN IV SEVERE PAIN LEVEL 7-10 Last administered on 04/04/17t 00:18; Admin Dose 4 MG; Start 04/02/17 at 15:30 Alprazolam 0.25 mg 0.25 mg Q8H PRN PO ANXIETY; Start 04/03/17 at 15:30 Potassium Chloride/Sodium Chloride (1/2 NS + KCl 20 Meq) 1,000 ml @ 100 mls/hr Q10H IV ; Start 04/04/17 at 11:00 DEMETRIUS PONCE Apr 04, 2017 11:22
[2017-04-04] MEDS: 1/2 NS + KCL 20 MEQ 1,000 ML IV SCH ×2 (11:30→21:00)
[2017-04-04] MEDS ORDERED: MECLIZINE 25 MG TAB PO PRN (11:30)
--- NOTE | 2017-04-04 16:28 | PN ---
Date/Time of Note Date/Time of Note DATE: 04/04/17 TIME: 16:25 Assessment/Plan VTE Prophylaxis VTE Prophylaxis Intervention: ambulation Lines/Catheters [facility] (from [facility]): Peripheral IV Urinary Cath still in place: No Assessment/Plan Assessment/Plan ssessment * Abdominal pain acute cholecystitis with papillary stricture post ERCP MRI Markedly distended gallbladder containing gallstone/ layering sludge with surrounding inflammatory changes most consistent with acute cholecystitis Mildly dilated central common bile duct with questionable small stones / sludge in the distal CBD. * Diabetes mellitus * Hypertension Plan * awaiting laparoscopic cholecystectomy Subjective 24 Hr Interval Summary Free Text/Dictation * Course reviewed with RN * Patient seen and examined * Awaiting laparoscopic cholecystectomy * ERCP Probable papillary stricture post-sphincterotomy with improved drainage. Exam/Review of Systems Vital Signs Vitals Vital Signs Date Time Temp Pulse Resp B/P Pulse Ox O2 Delivery O2 Flow Rate FiO2 04/04/17 07:10 98.3 56 18 132/63 95 04/03/17 21:29 Room Air Intake and Output 04/03/17 04/03/17 04/04/17 15:00 23:00 07:00 Intake Total 800 ml 500 ml 650 ml Balance 800 ml 500 ml 650 ml Exam Constitutional: alert Head: normocephalic Eyes: nl conjunctiva Neck: non-tender, supple Respiratory: clear to auscultation, normal air movement Cardiovascular: nl pulses, regular rate and rhythm Gastrointestinal: non-tender, soft Musculoskeletal: nl extremities to inspection, nl gait and stance Extremities: normal pulses Results Result Diagram: 04/04/17 0515 04/04/17 0515 Results 24 hrs Laboratory Tests Test 04/03/17 17:28 04/03/17 23:47 04/04/17 01:12 04/04/17 04:59 Bedside Glucose 126 177 188 140 Test 04/04/17 05:15 04/04/17 08:44 04/04/17 13:20 White Blood Count 7.7 Red Blood Count 3.63 L Hemoglobin 10.6 L Hematocrit 32.9 L Mean Corpuscular Volume 90.6 Mean Corpuscular Hemoglobin 29.2 Mean Corpuscular Hemoglobin Concent 32.2 Red Cell Distribution Width 12.8 Platelet Count 207 Mean Platelet Volume 11.0 H Neutrophils % 70.1 Lymphocytes % 17.5 Monocytes % 10.8 Eosinophils % 0.4 Basophils % 0.3 Nucleated Red Blood Cells % 0.0 Neutrophils # 5.4 Lymphocytes # 1.3 Monocytes # 0.8 Eosinophils # 0.0 Basophils # 0.0 Nucleated Red Blood Cells # 0.0 Prothrombin Time 15.2 H Prothrombin Time Ratio 1.2 INR International Normalized Ratio 1.19 Activated Partial Thromboplast Time 28.9 Sodium Level 146 H Potassium Level 4.5 Chloride Level 113 H Carbon Dioxide Level 23 Anion Gap 15 Blood Urea Nitrogen 15 Creatinine 0.74 Glucose Level 163 Calcium Level 9.0 Phosphorus Level 4.0 Magnesium Level 2.0 Total Bilirubin 0.9 Direct Bilirubin 0.50 #H Indirect Bilirubin 0.4 Aspartate Amino Transf (AST/SGOT) 298 H Alanine Aminotransferase (ALT/SGPT) 210 H Alkaline Phosphatase 423 #H Total Protein 6.2 Albumin 3.2 L Globulin 3.00 Albumin/Globulin Ratio 1.06 Bedside Glucose 132 136 Medications Medications Current Medications Amlodipine Besylate (Norvasc) 5 mg DAILY PO Last administered on 04/04/17 08: 45; Admin Dose 5 MG; Start 04/02/17 at 09:00 Atenolol (Tenormin) 25 mg BID PO Last administered on 04/04/17 00:11; Admin Dose 25 MG; Start 04/02/17 at 09:00 Enalapril Maleate (Vasotec) 20 mg BID PO Last administered on 04/04/17 08:46; Admin Dose 20 MG; Start 04/02/17 at 09:00 Hydralazine HCl (Apresoline) 10 mg Q8H PRN IV ELEVATED BLOOD PRESSURE; Start at 03:00 Ondansetron HCl (Zofran Inj) 4 mg Q6H PRN IV NAUSEA AND/OR VOMITING Last administered on 04/03/17 20:51; Admin Dose 4 MG; Start 04/02/17 at 03:30 Acetaminophen (Tylenol Tab) 650 mg Q6H PRN PO PAIN LEVEL 1-3 OR FEVER; Start at 03:30 Acetaminophen (Tylenol Supp) 650 mg Q6H PRN [place] PAIN LEVEL 1-3 OR FEVER; Start 04/02/17 at 03:30 Docusate Sodium (Colace) 100 mg Q12H PRN PO CONSTIPATION; Start 04/02/17 at 03: 30 Magnesium Hydroxide (Milk Of Mag) 30 ml DAILY PRN PO CONSTIPATION; Start at 03:30 Bisacodyl (Dulcolax Supp) 10 mg DAILY PRN [place] CONSTIPATION; Start 04/02/17 at 03 :30 Famotidine 20 mg 20 mg Q12 IV Last administered on 04/04/17 08:45; Admin Dose 20 MG; Start 04/02/17 at 09:00 Metronidazole 100 ml @ 100 mls/hr Q8 IVPB Last administered on 04/04/17 13:22 ; Admin Dose 100 MLS/HR; Start 04/02/17 at 08:00 Levofloxacin/ Dextrose (Levaquin 500mg/ D5W 100 ml (Pmx)) 100 ml @ 100 mls/hr Q24H IVPB Last administered on 04/04/17 04:59; Admin Dose 100 MLS/HR; Start at 03:30 Insulin Aspart (Novolog Insulin Pen) NOVOLOG *MILD* ALGORI... Q4 SC Last administered on 04/04/17 00:29; Admin Dose 1 UNIT; Start 04/02/17 at 09:00 Miscellaneous Information 1 ea NOTE XX ; Start 04/02/17 at 07:30 Glucose (Glutose) 15 gm Q15M PRN PO DECREASED GLUCOSE; Start 04/02/17 at 07:30 Glucose (Glutose) 22.5 gm Q15M PRN PO DECREASED GLUCOSE; Start 04/02/17 at 07: 30 Dextrose (D50w Syringe) 25 ml Q15M PRN IV DECREASED GLUCOSE; Start 04/02/17 at 07:30 Dextrose (D50w Syringe) 50 ml Q15M PRN IV DECREASED GLUCOSE; Start 04/02/17 at 07:30 Glucagon (Glucagen) 1 mg Q15M PRN IM DECREASED GLUCOSE; Start 04/02/17 at 07:30 Glucose (Glutose) 15 gm Q15M PRN BUCCAL DECREASED GLUCOSE; Start 04/02/17 at 07 :30 Morphine Sulfate (morphine) 4 mg Q4H PRN IV SEVERE PAIN LEVEL 7-10 Last administered on 04/04/17 00:18; Admin Dose 4 MG; Start 04/02/17 at 15:30 Alprazolam 0.25 mg 0.25 mg Q8H PRN PO ANXIETY; Start 04/03/17 at 15:30 Potassium Chloride/Sodium Chloride (1/2 NS + KCl 20 Meq) 1,000 ml @ 100 mls/hr Q10H IV Last administered on 04/04/17t 11:30; Admin Dose 100 MLS/HR; Start at 11:00 Meclizine HCl (Antivert) 25 mg TID PRN PO VERTIGO/DIZZINESS ; Start 04/04/17 at 11:30 RUSTY BEAVERS NP Apr 04, 2017 16:28
[2017-04-04] MEDS ORDERED: BUPIVACAINE 0.25% (MPF) 30 ML INJ ONE ×2 (20:23→22:00)
[2017-04-04] MEDS ORDERED: PROPOFOL 20 ML ONE (20:34)
[2017-04-04] MEDS ORDERED: LIDOCAINE 2% (SDV) 5 ML INJ ONE (20:34)
[2017-04-04] MEDS ORDERED: ROCURONIUM 50 MG INJ ONE (20:34)
[2017-04-04] MEDS ORDERED: MIDAZOLAM 1 MG/ML 2 ML INJ ONE (20:35)
[2017-04-04] MEDS ORDERED: CEFAZOLIN 1 GM INJ ONE (20:59)
[2017-04-04] MEDS ORDERED: ONDANSETRON 4 MG INJ ONE (21:00)
[2017-04-04] MEDS ORDERED: FENTAnyl 50 MCG/ML VIAL ONE (21:01)
[2017-04-04] MEDS ORDERED: hydrALAzine 20 MG INJ ONE (21:16)
[2017-04-04] MEDS ORDERED: NEOSTIGMINE 3 MG/3 ML SYRINGE ONE (21:17)
[2017-04-04] MEDS ORDERED: GLYCOPYRROLATE 0.4 MG INJ ONE (21:17)
[2017-04-04] MEDS ORDERED: SUCCINYLCHOLINE CHLORIDE 100 MG/5 ML SYG IV ONE (21:20)
[2017-04-04] MEDS ORDERED: FAMOTIDINE 20 MG INJ ONE (21:24)
[2017-04-04] MEDS ORDERED: hydrALAzine 20 MG INJ IV PRN (21:30)
[2017-04-04] MEDS ORDERED: DIPHENHYDRAMINE 50 MG INJ IV PRN (21:30)
[2017-04-04] MEDS ORDERED: FENTAnyl 50 MCG/ML VIAL IV PRN (21:30)
[2017-04-04] MEDS ORDERED: ONDANSETRON 4 MG INJ IV PRN ×2 (21:30→22:30)
[2017-04-04] MEDS ORDERED: HYDROmorphONE (0.2 MG/ML) 10ML SYG IV PRN (21:30)
[2017-04-04] MEDS ORDERED: HYDROmorphONE 2 MG/ML SYG ONE (21:42)
[2017-04-04] MEDS ORDERED: ACETAMINOPHEN 325 MG TAB PO PRN (22:30)
[2017-04-04] MEDS ORDERED: HYDROCODONE/APAP (5/325) TAB PO PRN (22:30)
--- NOTE | 2017-04-04 22:35 | OPR ---
Date/Time of Note Date/Time of Note DATE: 04/04/17 TIME: 22:29 Operative Report Procedure Date: Apr 04, 2017 Preoperative Diagnosis Acute cholecystitis Postoperative Diagnosis Acute cholecystitis Operation Performed Laparoscopic cholecystectomy Surgeon: ROBBY ENCINAS MD Anesthesia: general Anesthesiologist: MALCOM PATRICK MD Estimated Blood Loss: 100 - 150 ml's Specimens Gallbladder Complications: None Pt Condition Post Procedure: stable Disposition: PACU Indications The patient is a 72-year-old female who presented with right upper quadrant abdominal pain. The patient had clinical signs and symptoms of acute cholecystitis which was confirmed via an ultrasound. She was admitted, started on broad-spectrum intravenous antibiotics, IV fluids and pain control. She is found to have elevated transaminases on her laboratory work. An MRCP was done which showed possible choledocholithiasis. Patient then underwent ERCP and sphincterotomy. The patient was scheduled for laparoscopic cholecystectomy; possible open as definitive treatment to prevent further sequelae of gallstone disease which include but are not limited to: Gangrenous cholecystitis, choledocholithiasis, gallstone pancreatitis, ascending cholangitis, etc. All risks and benefits of the procedure including but not limited to: Wound infection, excessive bleeding, common bile duct injury, postoperative biliary leak, retained common bile duct stone, injury to intra-abdominal organs, conversion to open procedure, possible need for subsequent surgeries, etc. were all explained to the patient in full detail. She fully understood and wished to proceed with the procedure. Informed consent was therefore obtained. Operative\Procedure Findings Acute cholecystitis Procedure Description The patient was brought to the operating room and placed supine on the operating table. Bilateral sequential compression devices were placed on both lower extremities. The patient had been maintained on broad-spectrum intravenous antibiotics while an inpatient on the floor. After the induction of smooth general endotracheal anesthesia the patient's abdomen was prepped and draped in the standard surgical fashion. After performance of the surgical timeout a 5 mm incision was made in the inferior umbilicus and a Veress needle was used to access the intra-abdominal cavity atraumatically. Pneumoperitoneum was then obtained and the Veress needle was exchanged for a 5 mm trocar through which a 5 mm laparoscope was placed. Three further working ports were then placed a 12 mm port in the sub-xiphoid region and two 5 mm ports in the right upper quadrant. All port sites were anesthetized with 0.25% Marcaine prior to incision. Diagnostic laparoscopy showed the omentum to be draped over and firmly adhered over the gallbladder. Using a combination of blunt dissection, suction dissection and hook electrocautery the omentum was dissected off of the gallbladder. A massively distended, erythematous, thick walled and inflamed gallbladder was identified. Using a decompressing needle inserted through the lateralmost port site the gallbladder was decompressed. Approximately 90 cc of hemorrhagic bile was aspirated. Gallbladder was then able to be grasped. Using atraumatic graspers the gallbladder was grasped and retracted superiorly and laterally exposing the area of To's pouch. There was dense inflammatory fat covering the area of To's pouch. Dissection was begun in this area using a combination of blunt dissection, suction dissection and hook electrocautery. After much tedious dissection the cystic duct was identified as it entered straight into the neck of the gallbladder. It was dissected free of surrounding tissues and clipped proximally and distally x 3 and transected using EndoShears. Dissection was then continued posteriorly. The cystic artery was identified and dissected free of surrounding tissues. It too was clipped proximally and distally x 3 and transected using EndoShears. The gallbladder was then dissected off the liver bed using electrocautery. There was a lot of dense scarring of the gallbladder to the liver bed. Once completely free the gallbladder was placed in an Endo Catch bag and withdrawn through the subxiphoid port site and passed off the field as specimen. Most of the blood loss occurred in the form of oozing from dissecting fatty inflammatory tissues. Hemostasis was then inspected for and noted to be adequate. The abdomen was then irrigated with several liters of warm normal saline and the irrigant returned crystal clear. The fascia of the subxiphoid port site was reapproximated using an Endo Close device and 0 Vicryl sutures in interrupted fashion. Pneumoperitoneum was then released and all remaining trochars were withdrawn under direct vision. The subcutaneous tissues were irrigated with more warm normal saline and further local anesthesia was applied around the skin of the incision sites. The skin was then reapproximated using 4-0 Monocryl sutures in subcuticular fashion. The incisions were cleaned and Dermabond was applied to the incisions and the patient was awoken from anesthesia and transported to the recovery room in stable condition. All counts were correct at the end of the case x 2. ROBBY ENCINAS MD Apr 04, 2017 22:35
[2017-04-05 00:25] VITALS: BP 140/63; RESP 18
[2017-04-05] MEDS: FAMOTIDINE 20 MG INJ IV SCH ×3 (00:39→20:36)
[2017-04-05] MEDS: metroNIDAZOLE 500 MG/NS (PMX) 100 ML IVPB SCH ×4 (00:40→21:59)
[2017-04-05] MEDS: INSULIN ASPART [NOVOLOG] 3 ML PEN SC SCH ×5 (00:41→21:01)
[2017-04-05] MEDS: LEVOFLOXACIN 500MG/D5W (PMX) 100 ML IVPB SCH (03:15)
[2017-04-05] MEDS: HYDROCODONE/APAP (10/325) TAB PO PRN ×3 (03:44→23:34)
[2017-04-05 07:25] VITALS: BP 136/58; RESP 18
[2017-04-05] MEDS: 1/2 NS + KCL 20 MEQ 1,000 ML IV SCH ×3 (08:36→20:49)
[2017-04-05] MEDS: AMLODIPINE 5 MG TAB PO SCH (08:38)
[2017-04-05] MEDS: ATENOLOL 25 MG TAB PO SCH ×2 (08:38→20:38)
[2017-04-05] MEDS: ENALAPRIL 20 MG TAB PO SCH ×2 (08:38→20:38)
[2017-04-05] MEDS: DOCUSATE SODIUM 100 MG CAP PO SCH ×2 (08:38→20:37)
--- NOTE | 2017-04-05 11:03 | PN ---
Date/Time of Note Date/Time of Note DATE: 04/05/17 TIME: 10:56 Assessment/Plan VTE Prophylaxis VTE Prophylaxis Intervention: SCD's Lines/Catheters Urinary Cath still in place: No Assessment/Plan Assessment/Plan 72-year-old female with: 1. Acute cholecystitis, and CBD dilatation on MRCP with sludge and possible small stones, S/p ERCP POD#2 and s/p cholecystectomy POD#1. Labs pending Continue Levaquin and Flagyl. F/u post op recs. 2. Hyperlipidemia. Resume statin at discharge. 3. Hypertension. Resume home meds as tolerated. 4. Diabetes mellitus. A1c 7.1 Continue sliding scale insulin while po intake not optimal. 5. Chronic Vertigo, with recurrence. Back on Meclizine. Prophylaxis. Proton pump inhibitors for GI prophylaxis. SCDs to lower extremity for DVT prophylaxis. DISPOSITION: s/p ERCP and Cholecystectomy. Subjective 24 Hr Interval Summary Free Text/Dictation Patient complaining of weakness and Vertigo On clears Exam/Review of Systems Vital Signs Vitals Vital Signs Date Time Temp Pulse Resp B/P Pulse Ox O2 Delivery O2 Flow Rate FiO2 04/05/17 00:25 98.2 64 18 140/63 94 04/04/17 23:46 Nasal Cannula 04/04/17 22:27 10.0 Intake and Output 04/04/17 04/04/17 04/05/17 15:00 23:00 07:00 Intake Total 300 ml 510 ml 700 ml Output Total 150 ml 400 ml Balance 300 ml 360 ml 300 ml Exam Constitutional: alert, oriented, well developed Respiratory: clear to auscultation, normal air movement Cardiovascular: nl pulses, regular rate and rhythm Gastrointestinal: soft, tender (judy TTP ) Musculoskeletal: nl extremities to inspection Extremities: normal pulses, other (no edema, clubbing or cyanosis ) 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, lethargic, nl mental status, nl speech, other (Vertigo chronic) Results Result Diagram: 04/04/17 0515 04/04/17 0515 Results 24 hrs Laboratory Tests Test 04/04/17 13:20 04/04/17 17:31 04/04/17 20:24 04/04/17 22:30 Bedside Glucose 136 121 121 192 Test 04/05/17 00:20 04/05/17 08:25 Bedside Glucose 172 115 Medications Medications Current Medications Amlodipine Besylate (Norvasc) 5 mg DAILY PO Last administered on 04/05/17 08: 38; Admin Dose 5 MG; Start 04/02/17 at 09:00 Atenolol (Tenormin) 25 mg BID PO Last administered on 04/05/17 08:38; Admin Dose 25 MG; Start 04/02/17 at 09:00 Enalapril Maleate (Vasotec) 20 mg BID PO Last administered on 04/05/17 08:38; Admin Dose 20 MG; Start 04/02/17 at 09:00 Hydralazine HCl (Apresoline) 10 mg Q8H PRN IV ELEVATED BLOOD PRESSURE; Start at 03:00 Ondansetron HCl (Zofran Inj) 4 mg Q6H PRN IV NAUSEA AND/OR VOMITING Last administered on 04/03/17 20:51; Admin Dose 4 MG; Start 04/02/17 at 03:30 Acetaminophen (Tylenol Tab) 650 mg Q6H PRN PO PAIN LEVEL 1-3 OR FEVER; Start at 03:30 Acetaminophen (Tylenol Supp) 650 mg Q6H PRN [place] PAIN LEVEL 1-3 OR FEVER; Start 04/02/17 at 03:30 Docusate Sodium (Colace) 100 mg Q12H PRN PO CONSTIPATION; Start 04/02/17 at 03: 30 Magnesium Hydroxide (Milk Of Mag) 30 ml DAILY PRN PO CONSTIPATION; Start at 03:30 Bisacodyl (Dulcolax Supp) 10 mg DAILY PRN [place] CONSTIPATION; Start 04/02/17 at 03 :30 Famotidine 20 mg 20 mg Q12 IV Last administered on 04/05/17 08:39; Admin Dose 20 MG; Start 04/02/17 at 09:00 Metronidazole 100 ml @ 100 mls/hr Q8 IVPB Last administered on 04/05/17 06:09 ; Admin Dose 100 MLS/HR; Start 04/02/17 at 08:00 Levofloxacin/ Dextrose (Levaquin 500mg/ D5W 100 ml (Pmx)) 100 ml @ 100 mls/hr Q24H IVPB Last administered on 04/05/17 03:15; Admin Dose 100 MLS/HR; Start at 03:30 Miscellaneous Information 1 ea NOTE XX ; Start 04/02/17 at 07:30 Glucose (Glutose) 15 gm Q15M PRN PO DECREASED GLUCOSE; Start 04/02/17 at 07:30 Glucose (Glutose) 22.5 gm Q15M PRN PO DECREASED GLUCOSE; Start 04/02/17 at 07: 30 Dextrose (D50w Syringe) 25 ml Q15M PRN IV DECREASED GLUCOSE; Start 04/02/17 at 07:30 Dextrose (D50w Syringe) 50 ml Q15M PRN IV DECREASED GLUCOSE; Start 04/02/17 at 07:30 Glucagon (Glucagen) 1 mg Q15M PRN IM DECREASED GLUCOSE; Start 04/02/17 at 07:30 Glucose (Glutose) 15 gm Q15M PRN BUCCAL DECREASED GLUCOSE; Start 04/02/17 at 07 :30 Morphine Sulfate (morphine) 4 mg Q4H PRN IV SEVERE PAIN LEVEL 7-10 Last administered on 04/04/17 00:18; Admin Dose 4 MG; Start 04/02/17 at 15:30 Alprazolam 0.25 mg 0.25 mg Q8H PRN PO ANXIETY; Start 04/03/17 at 15:30 Potassium Chloride/Sodium Chloride (1/2 NS + KCl 20 Meq) 1,000 ml @ 100 mls/hr Q10H IV Last administered on 04/05/17 08:36; Admin Dose 100 MLS/HR; Start at 11:00 Meclizine HCl (Antivert) 25 mg TID PRN PO VERTIGO/DIZZINESS ; Start 04/04/17 at 11:30 Ondansetron HCl (Zofran Inj) 4 mg Q6H PRN IV NAUSEA AND/OR VOMITING; Start at 22:30 Acetaminophen (Tylenol Tab) 650 mg Q6H PRN PO PAIN AND OR ELEVATED TEMP; Start 04/04/17 at 22:30 Acetaminophen/ Hydrocodone Bitart ([place] (5/325)) 1 tab Q6H PRN PO PAIN LEVEL 6 -10; Start 04/04/17 at 22:30 Acetaminophen/ Hydrocodone Bitart ([place] (10/325)) 1 tab Q6H PRN PO PAIN LEVEL 6-10 Last administered on 04/05/17 03:44; Admin Dose 1 TAB; Start 04/04/17 at 22:30 Docusate Sodium (Colace) 100 mg BID PO Last administered on 04/05/17t 08:38; Admin Dose 100 MG; Start 04/05/17 at 09:00 Diagnostic Test (Pha) (Accu-Chek) 1 XX ; Start 04/06/17 at 02:00 DEMETRIUS PONCE Apr 05, 2017 11:03
[2017-04-05 11:07] LABS: ADD SCAN DIFF NO
[2017-04-05 11:18] LABS: BASOPHILS % 0.2 % (0.0-2.0); EOSINOPHILS # 0.1 10^3/ul (0.0-0.5); EOSINOPHILS % 0.7 % (0.0-7.0); HEMATOCRIT 32.3 % (37.0-47.0); HEMOGLOBIN 10.9 g/dl (12.0-16.0); LYMPHOCYTES # 1.4 10^3/ul (0.8-2.9); LYMPHOCYTES % 15.4 % (15.0-51.0); MEAN CORPUSCULAR HEMOGLOBIN 30.1 pg (29.0-33.0); MEAN CORPUSCULAR HGB CONC 33.7 g/dl (32.0-37.0); MEAN CORPUSCULAR VOLUME 89.2 fl (82.0-101.0); MONOCYTE # 1.1 10^3/ul (0.3-0.9); MONOCYTES % 12.5 % (0.0-11.0); NEUTROPHIL # 6.4 10^3/ul (1.6-7.5); NEUTROPHILS % 70.1 % (39.0-77.0); PLATELET COUNT 226 10^3/UL (140-415); RED BLOOD COUNT 3.62 10^6/ul (4.20-5.40); WHITE BLOOD COUNT 9.1 10^3/ul (4.8-10.8)
[2017-04-05 11:42] LABS: MAGNESIUM 1.3 mg/dl (1.7-2.5)
[2017-04-05 11:43] LABS: ALBUMIN 3.3 g/dl (3.3-4.9); ALBUMIN/GLOBULIN RATIO 1.32; BILIRUBIN,INDIRECT 0.4 mg/dl (0-1.1); BILIRUBIN,TOTAL 0.4 mg/dl (0.2-1.3); CALCIUM 8.8 mg/dl (8.4-10.2); CREATININE 0.74 mg/dl (0.44-1.00); POTASSIUM 4.2 mmol/L (3.5-5.1); TOTAL PROTEIN 5.8 g/dl (6.1-8.1)
[2017-04-05] MEDS ORDERED: MAGNESIUM SULFATE 4 GM/100 ML 100 ML IVPB ONE (12:30)
--- NOTE | 2017-04-05 12:41 | PN ---
Date/Time of Note Date/Time of Note DATE: 04/05/17 TIME: 12:39 Assessment/Plan Lines/Catheters [facility]o in Place (from [facility]): No Assessment/Plan Assessment/Plan 72-year-old female with acute cholecystitis status post laparoscopic cholecystectomy postop day #1 * Continue pain control * Continue IV antibiotics * Advance to diabetic diet as tolerated * Out of bed/incentive spirometry/physical therapy * Total bilirubin level normal. Transaminases mildly elevated. Continue to monitor. * DC planning per primary care team Subjective 24 Hr Interval Summary Complains of dizziness and incisional pain. Denies nausea. Tolerating clear liquids. Afebrile. Exam/Review of Systems Vital Signs Vitals Vital Signs Date Time Temp Pulse Resp B/P Pulse Ox O2 Delivery O2 Flow Rate FiO2 04/05/17 07:25 98.8 88 18 136/58 96 04/04/17 23:46 Nasal Cannula 04/04/17 22:27 10.0 Intake and Output 04/04/17 04/04/17 04/05/17 15:00 23:00 07:00 Intake Total 300 ml 510 ml 700 ml Output Total 150 ml 400 ml Balance 300 ml 360 ml 300 ml Exam Free Text/Dictation GENERAL: Awake, alert, oriented x 3. No acute distress. SKIN: No jaundice. HEENT: PERRLA, EOMI, No Scleral Icterus CARDIOVASCULAR: S1S2, regular rate and rhythm. No murmurs appreciated. RESPIRATORY: Clear to auscultation bilaterally. ABDOMEN: Soft, bowel sounds present, appropriate incisional tenderness to palpation. INCISIONS: Clean, dry, intact EXTREMITIES: Free range of motion x 4. No cyanosis, edema, or clubbing. Results Result Diagram: 04/05/17 1055 04/05/17 1055 ROBBY ENCINAS MD Apr 05, 2017 12:41
[2017-04-05 20:24] VITALS: BP 147/58; RESP 20
[2017-04-06] MEDS: ACCU-CHEK XX SCH (01:56)
[2017-04-06] MEDS ORDERED: ACCU-CHEK XX SCH (02:00)
[2017-04-06] MEDS: LEVOFLOXACIN 500MG/D5W (PMX) 100 ML IVPB SCH (03:24)
[2017-04-06] MEDS: metroNIDAZOLE 500 MG/NS (PMX) 100 ML IVPB SCH (06:03)
[2017-04-06 07:10] VITALS: BP 172/75; RESP 20
[2017-04-06 07:17] LABS: ADD SCAN DIFF NO
[2017-04-06 07:19] LABS: BASOPHILS % 0.1 % (0.0-2.0); EOSINOPHILS # 0.2 10^3/ul (0.0-0.5); EOSINOPHILS % 1.8 % (0.0-7.0); HEMATOCRIT 32.6 % (37.0-47.0); HEMOGLOBIN 10.5 g/dl (12.0-16.0); LYMPHOCYTES # 1.8 10^3/ul (0.8-2.9); LYMPHOCYTES % 20.8 % (15.0-51.0); MEAN CORPUSCULAR HGB CONC 32.2 g/dl (32.0-37.0); MEAN CORPUSCULAR VOLUME 90.1 fl (82.0-101.0); MEAN PLATELET VOLUME 10.9 fl (7.4-10.4); MONOCYTES % 11.8 % (0.0-11.0); NEUTROPHIL # 5.6 10^3/ul (1.6-7.5); PLATELET COUNT 219 10^3/UL (140-415); RED BLOOD COUNT 3.62 10^6/ul (4.20-5.40); RED CELL DISTRIBUTION WIDTH 13.1 % (11.5-14.5); WHITE BLOOD COUNT 8.8 10^3/ul (4.8-10.8)
[2017-04-06 07:59] LABS: ALBUMIN 3.1 g/dl (3.3-4.9); ALBUMIN/GLOBULIN RATIO 1.19; BILIRUBIN,INDIRECT 0.4 mg/dl (0-1.1); BILIRUBIN,TOTAL 0.4 mg/dl (0.2-1.3); CALCIUM 8.4 mg/dl (8.4-10.2); CREATININE 0.68 mg/dl (0.44-1.00); POTASSIUM 4.1 mmol/L (3.5-5.1); TOTAL PROTEIN 5.7 g/dl (6.1-8.1)
[2017-04-06] MEDS: INSULIN ASPART [NOVOLOG] 3 ML PEN SC SCH ×4 (08:31→20:34)
[2017-04-06] MEDS: FAMOTIDINE 20 MG INJ IV SCH (08:31)
[2017-04-06] MEDS: DOCUSATE SODIUM 100 MG CAP PO SCH ×2 (08:31→20:32)
[2017-04-06] MEDS: ENALAPRIL 20 MG TAB PO SCH ×2 (09:50→20:33)
[2017-04-06] MEDS: ATENOLOL 25 MG TAB PO SCH ×2 (09:51→20:34)
[2017-04-06] MEDS: AMLODIPINE 5 MG TAB PO SCH (09:51)
--- NOTE | 2017-04-06 10:48 | PN ---
Date/Time of Note Date/Time of Note DATE: 04/06/17 TIME: 10:46 Assessment/Plan Lines/Catheters IV Catheter Type (from Nrs): Peripheral IV Carballo in Place (from Nrs): No Assessment/Plan Assessment/Plan 72-year-old female with acute cholecystitis status post laparoscopic cholecystectomy postop day #2 * Surgically stable for discharge home once medically cleared * Follow-up in office in 1 week Subjective 24 Hr Interval Summary Complains of dizziness. Abdominal pain is controlled. Afebrile. Exam/Review of Systems Vital Signs Vitals Vital Signs Date Time Temp Pulse Resp B/P Pulse Ox O2 Delivery O2 Flow Rate FiO2 04/06/17 07:10 98.6 76 20 172/75 96 04/04/17 23:46 Nasal Cannula 04/04/17 22:27 10.0 Intake and Output 04/05/17 04/05/17 04/06/17 15:00 23:00 07:00 Intake Total 100 ml 2440 ml 1550 ml Output Total 1500 ml Balance 100 ml 2440 ml 50 ml Exam Free Text/Dictation GENERAL: Awake, alert, oriented x 3. No acute distress. SKIN: No jaundice. HEENT: PERRLA, EOMI, No Scleral Icterus CARDIOVASCULAR: S1S2, regular rate and rhythm. No murmurs appreciated. RESPIRATORY: Clear to auscultation bilaterally. ABDOMEN: Soft, bowel sounds present, appropriate incisional tenderness to palpation. INCISIONS: Clean, dry, intact EXTREMITIES: Free range of motion x 4. No cyanosis, edema, or clubbing. Results Result Diagram: 04/06/17 0545 04/06/17 0545 ROBBY ENCINAS MD Apr 06, 2017 10:48
[2017-04-06 10:55] VITALS: BP 167/73; PULSE 61; RESP 18
--- NOTE | 2017-04-06 11:39 | PN ---
Date/Time of Note Date/Time of Note DATE: 04/06/17 TIME: 11:34 Assessment/Plan VTE Prophylaxis VTE Prophylaxis Intervention: ambulation, SCD's Lines/Catheters IV [facility]ter Type (from [facility]): Peripheral IV Urinary Cath still in place: No Assessment/Plan Assessment/Plan 72-year-old female with: 1. Acute cholecystitis, and CBD dilatation on MRCP with sludge and possible small stones, S/p ERCP POD#2 and s/p cholecystectomy POD#2. Labs stable and LFTs better today Patient still complaining of weakness .. D/c plan for tomorrow Home, she declined SNF today but agreeable for home by AM Continue Levaquin and Flagyl po D/c IVF Appreciate surgical recs 2. Hyperlipidemia. Resume statin at discharge. 3. Hypertension. Resume home meds as tolerated. 4. Diabetes mellitus. A1c 7.1 Continue sliding scale insulin while po intake not optimal. 5. Chronic Vertigo, with recurrence. Back on Meclizine. Much better today. Prophylaxis. Proton pump inhibitors for GI prophylaxis. SCDs to lower extremity for DVT prophylaxis. DISPOSITION: s/p ERCP and Cholecystectomy, D/c plan for tomorrow. Subjective 24 Hr Interval Summary Free Text/Dictation Patient doing better today No Vertigo Ok for d/c planning per Surgery Patient with generalized weakness and refusing SNF, asking to go home tomorrow Exam/Review of Systems Vital Signs Vitals Vital Signs Date Time Temp Pulse Resp B/P Pulse Ox O2 Delivery O2 Flow Rate FiO2 04/06/17 07:10 98.6 76 20 172/75 96 04/04/17 23:46 Nasal Cannula 04/04/17 22:27 10.0 Intake and Output 04/05/17 04/05/17 04/06/17 15:00 23:00 07:00 Intake Total 100 ml 2440 ml 1550 ml Output Total 1500 ml Balance 100 ml 2440 ml 50 ml Exam Constitutional: alert, obese, oriented, well developed Respiratory: clear to auscultation, normal air movement Cardiovascular: nl pulses, regular rate and rhythm Gastrointestinal: soft, tender (minimal ) Musculoskeletal: nl extremities to inspection, nl gait and stance Extremities: normal pulses 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: [employer] II-XII intact, nl mental status, nl speech, nl strength Results Result Diagram: 04/06/1745 04/06/17544 Results 24 hrs Laboratory Tests Test 04/05/17 12:06 04/05/17 16:57 04/05/17 20:55 04/06/17 01:55 Bedside Glucose 163 245 H 247 H 239 H Test 04/06/17 05:45 04/06/17 08:05 White Blood Count 8.8 Red Blood Count 3.62 L Hemoglobin 10.5 L Hematocrit 32.6 L Mean Corpuscular Volume 90.1 Mean Corpuscular Hemoglobin 29.0 Mean Corpuscular Hemoglobin Concent 32.2 Red Cell Distribution Width 13.1 Platelet Count 219 Mean Platelet Volume 10.9 H Neutrophils % 64.0 Lymphocytes % 20.8 Monocytes % 11.8 H Eosinophils % 1.8 Basophils % 0.1 Nucleated Red Blood Cells % 0.0 Neutrophils # 5.6 Lymphocytes # 1.8 Monocytes # 1.0 H Eosinophils # 0.2 Basophils # 0.0 Nucleated Red Blood Cells # 0.0 Sodium Level 137 Potassium Level 4.1 Chloride Level 103 Carbon Dioxide Level 28 Anion Gap 10 Blood Urea Nitrogen 7 Creatinine 0.68 Glucose Level 162 Calcium Level 8.4 Magnesium Level 1.9 Total Bilirubin 0.4 Direct Bilirubin 0.00 Indirect Bilirubin 0.4 Aspartate Amino Transf (AST/SGOT) 25 Alanine Aminotransferase (ALT/SGPT) 81 H Alkaline Phosphatase 221 H Total Protein 5.7 L Albumin 3.1 L Globulin 2.60 Albumin/Globulin Ratio 1.19 Bedside Glucose 226 H Medications Medications Current Medications Amlodipine Besylate (Norvasc) 5 mg DAILY PO Last administered on 04/06/17 09: 51; Admin Dose 5 MG; Start 04/02/17 at 09:00 Atenolol (Tenormin) 25 mg BID PO Last administered on 04/06/17 09:51; Admin Dose 25 MG; Start 04/02/17 at 09:00 Enalapril Maleate (Vasotec) 20 mg BID PO Last administered on 04/06/17 09:50; Admin Dose 20 MG; Start 04/02/17 at 09:00 Hydralazine HCl (Apresoline) 10 mg Q8H PRN IV ELEVATED BLOOD PRESSURE; Start at 03:00 Ondansetron HCl (Zofran Inj) 4 mg Q6H PRN IV NAUSEA AND/OR VOMITING Last administered on 04/03/17 20:51; Admin Dose 4 MG; Start 04/02/17 at 03:30 Acetaminophen (Tylenol Tab) 650 mg Q6H PRN PO PAIN LEVEL 1-3 OR FEVER; Start at 03:30 Acetaminophen (Tylenol Supp) 650 mg Q6H PRN [place] PAIN LEVEL 1-3 OR FEVER; Start 04/02/17 at 03:30 Docusate Sodium (Colace) 100 mg Q12H PRN PO CONSTIPATION; Start 04/02/17 at 03: 30 Magnesium Hydroxide (Milk Of Mag) 30 ml DAILY PRN PO CONSTIPATION; Start at 03:30 Bisacodyl (Dulcolax Supp) 10 mg DAILY PRN [place] CONSTIPATION; Start 04/02/17 at 03 :30 Famotidine 20 mg 20 mg Q12 IV Last administered on 04/06/17 08:31; Admin Dose 20 MG; Start 04/02/17 at 09:00 Metronidazole 100 ml @ 100 mls/hr Q8 IVPB Last administered on 04/06/17 06:03 ; Admin Dose 100 MLS/HR; Start 04/02/17 at 08:00 Levofloxacin/ Dextrose (Levaquin 500mg/ D5W 100 ml (Pmx)) 100 ml @ 100 mls/hr Q24H IVPB Last administered on 04/06/17 03:24; Admin Dose 100 MLS/HR; Start at 03:30 Miscellaneous Information 1 ea NOTE XX ; Start 04/02/17 at 07:30 Glucose (Glutose) 15 gm Q15M PRN PO DECREASED GLUCOSE; Start 04/02/17 at 07:30 Glucose (Glutose) 22.5 gm Q15M PRN PO DECREASED GLUCOSE; Start 04/02/17 at 07: 30 Dextrose (D50w Syringe) 25 ml Q15M PRN IV DECREASED GLUCOSE; Start 04/02/17 at 07:30 Dextrose (D50w Syringe) 50 ml Q15M PRN IV DECREASED GLUCOSE; Start 04/02/17 at 07:30 Glucagon (Glucagen) 1 mg Q15M PRN IM DECREASED GLUCOSE; Start 04/02/17 at 07:30 Glucose (Glutose) 15 gm Q15M PRN BUCCAL DECREASED GLUCOSE; Start 04/02/17 at 07 :30 Morphine Sulfate (morphine) 4 mg Q4H PRN IV SEVERE PAIN LEVEL 7-10 Last administered on 04/04/17 00:18; Admin Dose 4 MG; Start 04/02/17 at 15:30 Alprazolam (Xanax) 0.25 mg Q8H PRN PO ANXIETY; Start 04/03/17 at 15:30 Meclizine HCl (Antivert) 25 mg TID PRN PO VERTIGO/DIZZINESS Last administered on 04/05/17 15:38; Admin Dose 25 MG; Start 04/04/17 at 11:30 Ondansetron HCl (Zofran Inj) 4 mg Q6H PRN IV NAUSEA AND/OR VOMITING; Start at 22:30 Acetaminophen (Tylenol Tab) 650 mg Q6H PRN PO PAIN AND OR ELEVATED TEMP; Start 04/04/17 at 22:30 Acetaminophen/ Hydrocodone Bitart ([place] (5/325)) 1 tab Q6H PRN PO PAIN LEVEL 6 -10; Start 04/04/17 at 22:30 Acetaminophen/ Hydrocodone Bitart ([place] (10/325)) 1 tab Q6H PRN PO PAIN LEVEL 6-10 Last administered on 04/05/17 23:34; Admin Dose 1 TAB; Start 04/04/17 at 22:30 Docusate Sodium (Colace) 100 mg BID PO Last administered on 04/06/17 08:31; Admin Dose 100 MG; Start 04/05/17 at 09:00 Diagnostic Test (Pha) (Accu-Chek) 1 ea 02 XX Last administered on 04/06/17 01: 56; Admin Dose 1 EA; Start 04/06/17 at 02:00 DEMETRIUS PONCE Apr 06, 2017 11:39
[2017-04-06] MEDS: metroNIDAZOLE 500 MG TAB PO SCH ×2 (14:36→21:40)
[2017-04-06 14:37] VITALS: BP 142/62; PULSE 67; RESP 18
--- NOTE | 2017-04-06 15:00 | PN ---
Date/Time of Note Date/Time of Note DATE: 04/06/17 TIME: 14:56 Assessment/Plan VTE Prophylaxis VTE Prophylaxis Intervention: ambulation Lines/Catheters [facility] ([facility] Peripheral IV Urinary Cath still in place: No Assessment/Plan Assessment/Plan Assessment * Abdominal pain acute cholecystitis with papillary stricture post ERCP S/P Laparoscopic cholecystectomy MRI Markedly distended gallbladder containing gallstone/ layering sludge with surrounding inflammatory changes most consistent with acute cholecystitis Mildly dilated central common bile duct with questionable small stones / sludge in the distal CBD. * * Diabetes mellitus * Hypertension Plan * Stable for outpatient management * Will follow up as needed Subjective 24 Hr Interval Summary Free Text/Dictation * Course reviewed with RN * Patient sees and examined * No complaints Exam/Review of Systems Vital Signs Vitals Vital Signs Date Time Temp Pulse Resp B/P Pulse Ox O2 Delivery O2 Flow Rate FiO2 04/06/17 14:37 99.4 67 18 142/62 92 Room Air 04/04/17 22:27 10.0 Intake and Output 04/05/17 04/05/17 04/06/17 15:00 23:00 07:00 Intake Total 100 ml 2440 ml 1550 ml Output Total 1500 ml Balance 100 ml 2440 ml 50 ml Exam Constitutional: alert Eyes: nl conjunctiva ENMT: nl external ears & nose, nl nasal mucosa & septum Neck: non-tender, supple Respiratory: clear to auscultation, normal air movement Cardiovascular: nl pulses, regular rate and rhythm Gastrointestinal: nl liver, spleen, non-tender, soft Musculoskeletal: nl extremities to inspection, nl gait and stance Extremities: normal pulses 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: nl mental status Skin: nl turgor, No rash or lesions Lymph: nl lymph nodes Results Result Diagram: 04/06/17 0545 04/06/17 0545 Results 24 hrs Laboratory Tests Test 04/05/17 16:57 04/05/17 20:55 04/06/17 01:55 04/06/17 05:45 Bedside Glucose 245 H 247 H 239 H White Blood Count 8.8 Red Blood Count 3.62 L Hemoglobin 10.5 L Hematocrit 32.6 L Mean Corpuscular Volume 90.1 Mean Corpuscular Hemoglobin 29.0 Mean Corpuscular Hemoglobin Concent 32.2 Red Cell Distribution Width 13.1 Platelet Count 219 Mean Platelet Volume 10.9 H Neutrophils % 64.0 Lymphocytes % 20.8 Monocytes % 11.8 H Eosinophils % 1.8 Basophils % 0.1 Nucleated Red Blood Cells % 0.0 Neutrophils # 5.6 Lymphocytes # 1.8 Monocytes # 1.0 H Eosinophils # 0.2 Basophils # 0.0 Nucleated Red Blood Cells # 0.0 Sodium Level 137 Potassium Level 4.1 Chloride Level 103 Carbon Dioxide Level 28 Anion Gap 10 Blood Urea Nitrogen 7 Creatinine 0.68 Glucose Level 162 Calcium Level 8.4 Magnesium Level 1.9 Total Bilirubin 0.4 Direct Bilirubin 0.00 Indirect Bilirubin 0.4 Aspartate Amino Transf (AST/SGOT) 25 Alanine Aminotransferase (ALT/SGPT) 81 H Alkaline Phosphatase 221 H Total Protein 5.7 L Albumin 3.1 L Globulin 2.60 Albumin/Globulin Ratio 1.19 Test 04/06/17 08:05 04/06/17 11:42 Bedside Glucose 226 H 201 Medications Medications Current Medications Amlodipine Besylate (Norvasc) 5 mg DAILY PO Last administered on 04/06/17 09: 51; Admin Dose 5 MG; Start 04/02/17 at 09:00 Atenolol (Tenormin) 25 mg BID PO Last administered on 04/06/17 09:51; Admin Dose 25 MG; Start 04/02/17 at 09:00 Enalapril Maleate (Vasotec) 20 mg BID PO Last administered on 04/06/17 09:50; Admin Dose 20 MG; Start 04/02/17 at 09:00 Hydralazine HCl (Apresoline) 10 mg Q8H PRN IV ELEVATED BLOOD PRESSURE; Start at 03:00 Ondansetron HCl (Zofran Inj) 4 mg Q6H PRN IV NAUSEA AND/OR VOMITING Last administered on 04/03/17 20:51; Admin Dose 4 MG; Start 04/02/17 at 03:30 Acetaminophen (Tylenol Tab) 650 mg Q6H PRN PO PAIN LEVEL 1-3 OR FEVER; Start at 03:30 Acetaminophen (Tylenol Supp) 650 mg Q6H PRN [place] PAIN LEVEL 1-3 OR FEVER; Start 04/02/17 at 03:30 Docusate Sodium (Colace) 100 mg Q12H PRN PO CONSTIPATION; Start 04/02/17 at 03: 30 Magnesium Hydroxide (Milk Of Mag) 30 ml DAILY PRN PO CONSTIPATION; Start at 03:30 Bisacodyl (Dulcolax Supp) 10 mg DAILY PRN [place] CONSTIPATION; Start 04/02/17 at 03 :30 Famotidine (Pepcid Iv) 20 mg Q12 IV Last administered on 04/06/17 08:31; Admin Dose 20 MG; Start 04/02/17 at 09:00 Miscellaneous Information 1 ea NOTE XX ; Start 04/02/17 at 07:30 Glucose (Glutose) 15 gm Q15M PRN PO DECREASED GLUCOSE; Start 04/02/17 at 07:30 Glucose (Glutose) 22.5 gm Q15M PRN PO DECREASED GLUCOSE; Start 04/02/17 at 07: 30 Dextrose (D50w Syringe) 25 ml Q15M PRN IV DECREASED GLUCOSE; Start 04/02/17 at 07:30 Dextrose (D50w Syringe) 50 ml Q15M PRN IV DECREASED GLUCOSE; Start 04/02/17 at 07:30 Glucagon (Glucagen) 1 mg Q15M PRN IM DECREASED GLUCOSE; Start 04/02/17 at 07:30 Glucose (Glutose) 15 gm Q15M PRN BUCCAL DECREASED GLUCOSE; Start 04/02/17 at 07 :30 Morphine Sulfate (morphine) 4 mg Q4H PRN IV SEVERE PAIN LEVEL 7-10 Last administered on 04/04/17 00:18; Admin Dose 4 MG; Start 04/02/17 at 15:30 Alprazolam (Xanax) 0.25 mg Q8H PRN PO ANXIETY; Start 04/03/17 at 15:30 Meclizine HCl (Antivert) 25 mg TID PRN PO VERTIGO/DIZZINESS Last administered on 04/05/17 15:38; Admin Dose 25 MG; Start 04/04/17 at 11:30 Ondansetron HCl (Zofran Inj) 4 mg Q6H PRN IV NAUSEA AND/OR VOMITING; Start at 22:30 Acetaminophen (Tylenol Tab) 650 mg Q6H PRN PO PAIN AND OR ELEVATED TEMP; Start 04/04/17 at 22:30 Acetaminophen/ Hydrocodone Bitart ([place] (5/325)) 1 tab Q6H PRN PO PAIN LEVEL 6 -10; Start 04/04/17 at 22:30 Acetaminophen/ Hydrocodone Bitart ([place] ([address])) 1 tab Q6H PRN PO PAIN LEVEL 6-10 Last administered on 04/05/17 23:34; Admin Dose 1 TAB; Start 04/04/17 at 22:30 Docusate Sodium (Colace) 100 mg BID PO Last administered on 04/06/17 08:31; Admin Dose 100 MG; Start 04/05/17 at 09:00 Diagnostic Test (Pha) (Accu-Chek) 1 ea 02 XX Last administered on 04/06/17 01: 56; Admin Dose 1 EA; Start 04/06/17 at 02:00 Levofloxacin (Levaquin) 500 mg DAILY PO ; Start 04/07/17 at 09:00 Metronidazole (Flagyl) 500 mg Q8 PO Last administered on 04/06/17 14:36; Admin Dose 500 MG; Start 04/06/17 at 14:00 RUSTY BEAVERS NP Apr 06, 2017 15:00
[2017-04-06 20:17] VITALS: BP 153/70; RESP 16
[2017-04-06] MEDS: FAMOTIDINE 20 MG TAB PO SCH (20:33)
[2017-04-06] MEDS: HYDROCODONE/APAP (10/325) TAB PO PRN (21:41)
[2017-04-06 21:46] VITALS: BP 147/65; PULSE 64
[2017-04-07] MEDS: ACCU-CHEK XX SCH (01:55)
[2017-04-07] MEDS: metroNIDAZOLE 500 MG TAB PO SCH ×2 (05:32→14:29)
[2017-04-07 07:19] LABS: ALBUMIN/GLOBULIN RATIO 1.11; BILIRUBIN,INDIRECT 0.3 mg/dl (0-1.1); BILIRUBIN,TOTAL 0.3 mg/dl (0.2-1.3); CALCIUM 9.2 mg/dl (8.4-10.2); CREATININE 0.76 mg/dl (0.44-1.00); POTASSIUM 4.4 mmol/L (3.5-5.1); TOTAL PROTEIN 5.7 g/dl (6.1-8.1)
[2017-04-07 08:15] VITALS: BP 141/65; PULSE 68; RESP 18
[2017-04-07] MEDS: INSULIN ASPART [NOVOLOG] 3 ML PEN SC SCH ×3 (08:15→17:07)
[2017-04-07] MEDS: DOCUSATE SODIUM 100 MG CAP PO SCH (08:21)
[2017-04-07] MEDS: ATENOLOL 25 MG TAB PO SCH (08:23)
[2017-04-07] MEDS: ENALAPRIL 20 MG TAB PO SCH (08:23)
[2017-04-07] MEDS: AMLODIPINE 5 MG TAB PO SCH (08:23)
[2017-04-07] MEDS: FAMOTIDINE 20 MG TAB PO SCH (08:23)
[2017-04-07] MEDS ORDERED: LEVOFLOXACIN 500 MG TAB PO SCH (09:00)
--- NOTE | 2017-04-07 09:16 | PN ---
Date/Time of Note Date/Time of Note DATE: 04/07/17 TIME: 09:14 Assessment/Plan VTE Prophylaxis VTE Prophylaxis Intervention: ambulation Lines/Catheters IV [facility] [place] Urinary Cath still in place: No Assessment/Plan Assessment/Plan ssessment Abdominal pain acute cholecystitis with papillary stricture post ERCP S/P Laparoscopic cholecystectomy MRI Markedly distended gallbladder containing gallstone/ layering sludge with surrounding inflammatory changes most consistent with acute cholecystitis Mildly dilated central common bile duct with questionable small stones / sludge in the distal CBD. Diabetes mellitus Hypertension Plan Stable for outpatient management Will follow up as needed Subjective 24 Hr Interval Summary Free Text/Dictation * Course reviewed with RN * Patient seen and examined * No abdominal pain Exam/Review of Systems Vital Signs Vitals Vital Signs Date Time Temp Pulse Resp B/P Pulse Ox O2 Delivery O2 Flow Rate FiO2 04/07/17 08:15 98.7 68 18 141/65 92 Room Air 04/04/17 22:27 10.0 Intake and Output 04/06/17 04/06/17 04/07/17 15:00 23:00 07:00 Intake Total 550 ml 560 ml Balance 550 ml 560 ml Exam Constitutional: alert, oriented Head: normocephalic Eyes: nl conjunctiva Neck: non-tender, supple Respiratory: clear to auscultation, normal air movement Cardiovascular: nl pulses, regular rate and rhythm Gastrointestinal: non-tender, soft Musculoskeletal: nl extremities to inspection, nl gait and stance Extremities: normal pulses Results Result Diagram: 04/06/17 0545 04/07/17 0455 Results 24 hrs Laboratory Tests Test 04/06/17 11:42 04/06/17 17:29 04/06/17 20:32 04/07/17 04:55 Bedside Glucose 201 149 178 Sodium Level 142 Potassium Level 4.4 Chloride Level 105 Carbon Dioxide Level 29 Anion Gap 12 Blood Urea Nitrogen 10 Creatinine 0.76 Glucose Level 113 # Calcium Level 9.2 Magnesium Level 1.7 Total Bilirubin 0.3 Direct Bilirubin 0.00 Indirect Bilirubin 0.3 Aspartate Amino Transf (AST/SGOT) 28 Alanine Aminotransferase (ALT/SGPT) 64 Alkaline Phosphatase 173 H Total Protein 5.7 L Albumin 3.0 L Globulin 2.70 Albumin/Globulin Ratio 1.11 Test 04/07/17 08:01 Bedside Glucose 167 Medications Medications Current Medications Amlodipine Besylate (Norvasc) 5 mg DAILY PO Last administered on 04/07/17 08: 23; Admin Dose 5 MG; Start 04/02/17 at 09:00 Atenolol (Tenormin) 25 mg BID PO Last administered on 04/07/17 08:23; Admin Dose 25 MG; Start 04/02/17 at 09:00 Enalapril Maleate (Vasotec) 20 mg BID PO Last administered on 04/07/17 08:23; Admin Dose 20 MG; Start 04/02/17 at 09:00 Hydralazine HCl (Apresoline) 10 mg Q8H PRN IV ELEVATED BLOOD PRESSURE; Start at 03:00 Acetaminophen (Tylenol Supp) 650 mg Q6H PRN [place] PAIN LEVEL 1-3 OR FEVER; Start 04/02/17 at 03:30 Docusate Sodium (Colace) 100 mg Q12H PRN PO CONSTIPATION; Start 04/02/17 at 03: 30 Magnesium Hydroxide (Milk Of Mag) 30 ml DAILY PRN PO CONSTIPATION; Start at 03:30 Bisacodyl (Dulcolax Supp) 10 mg DAILY PRN [place] CONSTIPATION; Start 04/02/17 at 03 :30 Miscellaneous Information 1 ea NOTE XX ; Start 04/02/17 at 07:30 Glucose (Glutose) 15 gm Q15M PRN PO DECREASED GLUCOSE; Start 04/02/17 at 07:30 Glucose (Glutose) 22.5 gm Q15M PRN PO DECREASED GLUCOSE; Start 04/02/17 at 07: 30 Dextrose (D50w Syringe) 25 ml Q15M PRN IV DECREASED GLUCOSE; Start 04/02/17 at 07:30 Dextrose (D50w Syringe) 50 ml Q15M PRN IV DECREASED GLUCOSE; Start 04/02/17 at 07:30 Glucagon (Glucagen) 1 mg Q15M PRN IM DECREASED GLUCOSE; Start 04/02/17 at 07:30 Glucose (Glutose) 15 gm Q15M PRN BUCCAL DECREASED GLUCOSE; Start 04/02/17 at 07 :30 Morphine Sulfate (morphine) 4 mg Q4H PRN IV SEVERE PAIN LEVEL 7-10 Last administered on 04/04/17 00:18; Admin Dose 4 MG; Start 04/02/17 at 15:30 Alprazolam (Xanax) 0.25 mg Q8H PRN PO ANXIETY; Start 04/03/17 at 15:30 Meclizine HCl (Antivert) 25 mg TID PRN PO VERTIGO/DIZZINESS Last administered on 04/05/17 15:38; Admin Dose 25 MG; Start 04/04/17 at 11:30 Ondansetron HCl (Zofran Inj) 4 mg Q6H PRN IV NAUSEA AND/OR VOMITING; Start at 22:30 Acetaminophen (Tylenol Tab) 650 mg Q6H PRN PO PAIN AND OR ELEVATED TEMP; Start 04/04/17 at 22:30 Acetaminophen/ Hydrocodone Bitart ([place] (5/325)) 1 tab Q6H PRN PO PAIN LEVEL 6 -10; Start 04/04/17 at 22:30 Acetaminophen/ Hydrocodone Bitart ([place] (10/325)) 1 tab Q6H PRN PO PAIN LEVEL 6-10 Last administered on 04/06/17 21:41; Admin Dose 1 TAB; Start 04/04/17 at 22:30 Docusate Sodium (Colace) 100 mg BID PO Last administered on 04/07/17 08:21; Admin Dose 100 MG; Start 04/05/17 at 09:00 Diagnostic Test (Pha) (Accu-Chek) 1 ea 02 XX Last administered on 04/06/17 01: 56; Admin Dose 1 EA; Start 04/06/17 at 02:00 Levofloxacin (Levaquin) 500 mg DAILY PO Last administered on 04/07/17 08:22; Admin Dose 500 MG; Start 04/07/17 at 09:00 Metronidazole (Flagyl) 500 mg Q8 PO Last administered on 04/07/17 05:32; Admin Dose 500 MG; Start 04/06/17 at 14:00 Famotidine (Pepcid) 20 mg BID PO Last administered on 04/07/17 08:23; Admin Dose 20 MG; Start 04/06/17 at 21:00 RUSTY BEAVERS NP Apr 07, 2017 09:16
--- NOTE | 2017-04-07 11:26 | PN ---
Date/Time of Note Date/Time of Note DATE: 04/07/17 TIME: 10:56 Assessment/Plan VTE Prophylaxis VTE Prophylaxis Intervention: ambulation, SCD's Lines/Catheters IV Catheter Type (from Nrs): Saline Lock Urinary Cath still in place: No Assessment/Plan Assessment/Plan 72-year-old female with: 1. Acute cholecystitis, and CBD dilatation on MRCP with sludge and possible small stones, S/p ERCP POD#4 and s/p cholecystectomy POD#3. Labs stable and LFTs better today Patient much better and had BM today Continue Levaquin and Flagyl po x 5 days Also to go home on Colace Follow up with PCP and General Surgery in 1 week 2. Hyperlipidemia. Resume statin at discharge. 3. Hypertension. Resume home meds. 4. Diabetes mellitus. A1c 7.1 Resume home meds. 5. Chronic Vertigo, with recurrence. Back on Meclizine. Resolved as of today. Prophylaxis. Proton pump inhibitors for GI prophylaxis. SCDs to lower extremity for DVT prophylaxis. DISPOSITION: s/p ERCP and Cholecystectomy, D/c home with PCP and Dr Vasquez follow up. Subjective 24 Hr Interval Summary Free Text/Dictation Patient doing better today, no dizziness Ambulating and had BM today D/c home today with PCP and Gen Surg follow up Exam/Review of Systems Vital Signs Vitals Vital Signs Date Time Temp Pulse Resp B/P Pulse Ox O2 Delivery O2 Flow Rate FiO2 04/07/17 08:15 98.7 68 18 141/65 92 Room Air 04/04/17 22:27 10.0 Intake and Output 04/06/17 04/06/17 04/07/17 15:00 23:00 07:00 Intake Total 550 ml 560 ml Balance 550 ml 560 ml Exam Constitutional: alert, oriented, well developed Respiratory: clear to auscultation, normal air movement Cardiovascular: nl pulses, regular rate and rhythm Gastrointestinal: soft, tender (some TTP RUQ post op site ) Musculoskeletal: nl extremities to inspection Extremities: normal pulses 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: CONTROL SUPERVISOR II-XII intact, nl mental status, nl speech, nl strength Results Result Diagram: 04/06/17 0545 04/07/17 0455 Results 24 hrs Laboratory Tests Test 04/06/17 11:42 04/06/17 17:29 04/06/17 20:32 04/07/17 04:55 Bedside Glucose 201 149 178 Sodium Level 142 Potassium Level 4.4 Chloride Level 105 Carbon Dioxide Level 29 Anion Gap 12 Blood Urea Nitrogen 10 Creatinine 0.76 Glucose Level 113 # Calcium Level 9.2 Magnesium Level 1.7 Total Bilirubin 0.3 Direct Bilirubin 0.00 Indirect Bilirubin 0.3 Aspartate Amino Transf (AST/SGOT) 28 Alanine Aminotransferase (ALT/SGPT) 64 Alkaline Phosphatase 173 H Total Protein 5.7 L Albumin 3.0 L Globulin 2.70 Albumin/Globulin Ratio 1.11 Test 04/07/17 08:01 Bedside Glucose 167 Medications Medications Current Medications Amlodipine Besylate (Norvasc) 5 mg DAILY PO Last administered on 04/07/17 08: 23; Admin Dose 5 MG; Start 04/02/17 at 09:00 Atenolol (Tenormin) 25 mg BID PO Last administered on 04/07/17 08:23; Admin Dose 25 MG; Start 04/02/17 at 09:00 Enalapril Maleate (Vasotec) 20 mg BID PO Last administered on 04/07/17 08:23; Admin Dose 20 MG; Start 04/02/17 at 09:00 Hydralazine HCl (Apresoline) 10 mg Q8H PRN IV ELEVATED BLOOD PRESSURE; Start at 03:00 Acetaminophen (Tylenol Supp) 650 mg Q6H PRN [place] PAIN LEVEL 1-3 OR FEVER; Start 04/02/17 at 03:30 Docusate Sodium (Colace) 100 mg Q12H PRN PO CONSTIPATION; Start 04/02/17 at 03: 30 Magnesium Hydroxide (Milk Of Mag) 30 ml DAILY PRN PO CONSTIPATION; Start at 03:30 Bisacodyl (Dulcolax Supp) 10 mg DAILY PRN [place] CONSTIPATION; Start 04/02/17 at 03 :30 Miscellaneous Information 1 ea NOTE XX ; Start 04/02/17 at 07:30 Glucose (Glutose) 15 gm Q15M PRN PO DECREASED GLUCOSE; Start 04/02/17 at 07:30 Glucose (Glutose) 22.5 gm Q15M PRN PO DECREASED GLUCOSE; Start 04/02/17 at 07: 30 Dextrose (D50w Syringe) 25 ml Q15M PRN IV DECREASED GLUCOSE; Start 04/02/17 at 07:30 Dextrose (D50w Syringe) 50 ml Q15M PRN IV DECREASED GLUCOSE; Start 04/02/17 at 07:30 Glucagon (Glucagen) 1 mg Q15M PRN IM DECREASED GLUCOSE; Start 04/02/17 at 07:30 Glucose (Glutose) 15 gm Q15M PRN BUCCAL DECREASED GLUCOSE; Start 04/02/17 at 07 :30 Morphine Sulfate (morphine) 4 mg Q4H PRN IV SEVERE PAIN LEVEL 7-10 Last administered on 04/04/17 00:18; Admin Dose 4 MG; Start 04/02/17 at 15:30 Alprazolam (Xanax) 0.25 mg Q8H PRN PO ANXIETY; Start 04/03/17 at 15:30 Meclizine HCl (Antivert) 25 mg TID PRN PO VERTIGO/DIZZINESS Last administered on 04/05/17 15:38; Admin Dose 25 MG; Start 04/04/17 at 11:30 Ondansetron HCl (Zofran Inj) 4 mg Q6H PRN IV NAUSEA AND/OR VOMITING; Start at 22:30 Acetaminophen (Tylenol Tab) 650 mg Q6H PRN PO PAIN AND OR ELEVATED TEMP; Start 04/04/17 at 22:30 Acetaminophen/ Hydrocodone Bitart ([place] (5/325)) 1 tab Q6H PRN PO PAIN LEVEL 6 -10; Start 04/04/17 at 22:30 Acetaminophen/ Hydrocodone Bitart ([place] (10/325)) 1 tab Q6H PRN PO PAIN LEVEL 6-10 Last administered on 04/06/17 21:41; Admin Dose 1 TAB; Start 04/04/17 at 22:30 Docusate Sodium (Colace) 100 mg BID PO Last administered on 04/07/17 08:21; Admin Dose 100 MG; Start 04/05/17 at 09:00 Diagnostic Test (Pha) (Accu-Chek) 1 ea 02 XX Last administered on 04/06/17 01: 56; Admin Dose 1 EA; Start 04/06/17 at 02:00 Levofloxacin (Levaquin) 500 mg DAILY PO Last administered on 04/07/17 08:22; Admin Dose 500 MG; Start 04/07/17 at 09:00 Metronidazole (Flagyl) 500 mg Q8 PO Last administered on 04/07/17 05:32; Admin Dose 500 MG; Start 04/06/17 at 14:00 Famotidine (Pepcid) 20 mg BID PO Last administered on 04/07/17 08:23; Admin Dose 20 MG; Start 04/06/17 at 21:00 DEMETRIUS PONCE Apr 07, 2017 11:26
--- NOTE | 2017-04-07 11:27 | PDOCDIS ---
Discharge Instructions CONDITION Patient Condition: Stable HOME CARE INSTRUCTIONS: Special Diet: CARB CONTROL ACTIVITY: Activity Restrictions: Slowly Increase Activity Avoid heavy lifting Do not operate Machinery Avoid Heavy Housework FOLLOW UP/APPOINTMENTS Appointments Followup with PCP in 1 week Follow up with Surgery, Dr Vasquez in 1 week DEMETRIUS PONCE Apr 07, 2017 11:27
[2017-04-07] MEDS ORDERED: DOCU-216 PO (11:30)
[2017-04-07] MEDS ORDERED: METR500T PO (11:30)
[2017-04-07] MEDS ORDERED: LEVO500T72 PO (11:30)
[2017-04-07] MEDS ORDERED: HYDR-3498 PO (11:30)
== END 2017-04-07 18:30 | disposition home or self-care (01) | DRG 419 ==
LOC: E/R 20:01 → PP2 04-02 02:31
PROVIDERS: ADMIT Internal Medicine; ATTEND Internal Medicine
PROC: 0F7D8ZZ Dilation of Pancreatic Duct, Via Natural or Artificial Opening Endoscopic (ICD-10-PCS; principal; 2017-04-03 18:30)
PROC: 0FT44ZZ Resection of Gallbladder, Percutaneous Endoscopic Approach (ICD-10-PCS; 2017-04-04)
DX: K81.0 Acute cholecystitis (principal); E11.8 Type 2 diabetes mellitus with unspecified complications; D64.9 Anemia, unspecified; I10 Essential (primary) hypertension; E78.5 Hyperlipidemia, unspecified; R42 Dizziness and giddiness; E66.9 Obesity, unspecified; Z68.28 Body mass index [BMI] 28.0-28.9, adult; E87.6 Hypokalemia
CPT/HCPCS: 36415; 71010; 74181; 74330; 76705; 80053; 80061; 81001; 82962; 83036; 83690; 83735; 84100; 85025; 85610; 85730; 88304; 93005; 96374; 96375; J0360; J0690; J0696; J1170; J1815; J1956; J2250; J2270; J2405; J2710; J2765; J3010; J3480; J7030; J7999

== ENCOUNTER 2019-06-17 23:46 | Emergency (ER) | payer OTHER ==
[~2019-06-17] VITALS: Ht 157.5 cm; Wt 65.6 kg
[~2019-06-17 23:46] MED LIST changes: +AMLO-145 PO; +ATOR10TA65 PO; -CRES10 PO; +DOCU-216 PO; -HYD25 PO; +HYDR-3601 PO; +HYDR25TA6 PO; +LEVO500T48 PO; +METF500T9 PO; +METR500T PO; +RSV10T PO
[2019-06-17 23:52] VITALS: Ht 157.5 cm; Wt 65.6 kg
[2019-06-18] MEDS ORDERED: SOD CHLORIDE 0.9% 500 ML IV STA (00:40)
[2019-06-18 05:32] VITALS: BP 133/60; PULSE 80; RESP 16
== END 2019-06-18 05:34 | disposition home or self-care (01) ==
LOC: E/R 23:46
DX: R42 Dizziness and giddiness (principal); E11.9 Type 2 diabetes mellitus without complications; I10 Essential (primary) hypertension; R07.9 Chest pain, unspecified
CPT/HCPCS: 36415; 70450; 71045; 80048; 82962; 84484; 85025; 85610; 85730; 93005; 99285; J7040